=== PATIENT | female | born 1970 | race African-American/Black ===

== ENCOUNTER 2016-09-20 10:49 | Emergency (ER) | payer OTHER ==
[~2016-09-20] VITALS: Ht 157.5 cm; Wt 60.0 kg
[~2016-09-20 10:49] MED LIST: METR250 PO
[2016-09-20 11:05] VITALS: BP 132/74; PULSE 98; RESP 20; TEMP 98; O2SAT 98
[2016-09-20] MEDS ORDERED: ZOLO25TA PO (11:14)
[2016-09-20] MEDS ORDERED: RISP.25 PO (11:14)
[2016-09-20] MEDS ORDERED: SERO25TA PO (11:14)
--- NOTE | 2016-09-20 11:16 | PD ---
HPI Chief Complaint: Psychiatric Symptoms Time Seen by Provider: 11:05 Travel History International Travel<30 days: No Contact w/Intl Traveler<30days: No Traveled to known affect area: No History of Present Illness HPI Patient is a 45-year-old female who presents to emergency room after she made suicidal and homicidal threats to police officers today. Patient reports that she has history of bipolar disorder, reports that she hates her life and loss of committing suicide by overdosing on pills. Patient reports that she has not tried to overdose on pills because she has not found any good pills to overdose on. Patient reports that she has homicidal tendencies and ideations to her boyfriend because he has a "ahole." Patient reports that she does has history of bipolar disorder, reports that she's is supposed to be on 3 different medications for this, patient reports that she has not been compliant with her medications for the past 3 days as she has not been getting along with her boyfriend. Patient does admit to using drugs and last used cocaine PFSH Past Medical History Asthma: Yes Anxiety: Yes Depression: Yes Heart Rhythm Problems: No Diminished Hearing: No Hypertension: Yes Implanted Vascular Access Dvce: No Musculoskeletal: Yes Psychiatric: Yes (schizoeffective disorder, depression, anxiety, cocaine abuse) Respiratory: Yes Tetanus Vaccination: < 5 Years ?: Not : 6 Para: 4 Miscarriage: 0 : 2 Tubal Ligation: Yes Past Surgical History Section: Yes (X 4) Family History Family History: Negative Social History Alcohol Use: Yes (OCCASIONAL) Tobacco Use: Yes (1 1/2 PPD) Substance Use: Yes (Hx cocaine abuse) Allergies-Medications (Allergen,Severity, Reaction): Coded Allergies: Septra (Verified Allergy, Severe, 09/20/16) Per pt. Sulfa (Verified Allergy, Intermediate, Hives, 09/20/16) Per pt. Reported Meds & Prescriptions Reported Meds & Active Scripts Active Flagyl (Metronidazole) 250 Mg Tab 250 Mg PO BID 7 Days Review of Systems General / Constitutional: No: Fever Eyes: No: Visual changes HENT: No: Headaches Cardiovascular: No: Chest Pain or Discomfort Respiratory: No: Shortness of Breath Gastrointestinal: No: Abdominal Pain Genitourinary: No: Dysuria Musculoskeletal: No: Pain Skin: No Rash Neurologic: No: Weakness Psychiatric: Positive: Depression, Suicidal Ideations, Substance Abuse, Homicidal Ideation Endocrine: No: Polydipsia Hematologic/Lymphatic: No: Easy Bruising Physical Exam Narrative GENERAL: No acute distress, nontoxic SKIN: Warm and dry. HEAD: Atraumatic. Normocephalic. EYES: Pupils equal and round. No scleral icterus. No injection or drainage. ENT: No nasal bleeding or discharge. Mucous membranes pink and moist. NECK: Trachea midline. No JVD. CARDIOVASCULAR: Regular rate and rhythm. No murmur appreciated. RESPIRATORY: No accessory muscle use. Clear to auscultation. Breath sounds equal bilaterally. GASTROINTESTINAL: Abdomen soft, non-tender, nondistended. Hepatic and splenic margins not palpable. MUSCULOSKELETAL: No obvious deformities. No clubbing. No cyanosis. No edema. NEUROLOGICAL: Awake and alert. No obvious cranial nerve deficits. Motor grossly within normal limits. Normal speech. PSYCHIATRIC: Patient anxious, patient with suicidal and homicidal ideations Data Data Last Documented VS Vital Signs Date Time Temp Pulse Resp B/P Pulse Ox O2 Delivery O2 Flow Rate FiO2 09/20/16 11:05 98.0 98 20 132/74 98 [facility] Medical Decision Making Medical Screen Exam Complete: Yes Emergency Medical Condition: Yes Interpretation(s) Vital Signs Date Time Temp Pulse Resp B/P Pulse Ox O2 Delivery O2 Flow Rate FiO2 09/20/16 11:05 98.0 98 20 132/74 98 Differential Diagnosis Drug abuse, bipolar disorder, suicidal idealizations, homicidal idealizations Narrative Course Patient is a 45-year-old female who presents to emergency room under Jackson act by police officers. Patient with suicidal and homicidal ideations with increased depression. Patient reports that she has thoughts for how she would commit suicide but has not acted upon them. Plan to obtain screening labs, once medically cleared, will clear her for psychiatric evaluation. Rosie Lux DO Sep 20, 2016 11:16
[2016-09-20 11:56] LABS: AMPHETAMINE, URINE NEG (NEG); BARBITURATES, URINE NEG (NEG); COCAINE, URINE POS (NEG)
[2016-09-20 11:56] LABS: ALT (GPT) 16 U/L (10-53); ANION GAP 7 MEQ/L (5-15); AST (GOT) 25 U/L (15-37); BLOOD UREA NITROGEN 8 MG/DL (7-18); CHLORIDE 106 MEQ/L (98-107); GLOMERULAR FILTRATION RATE 93 ML/MIN (>89); POTASSIUM 3.1 MEQ/L (3.5-5.1); SODIUM (NA) 140 MEQ/L (136-145)
[2016-09-20 11:59] LABS: ALKALINE PHOSPHATASE 82 U/L (45-117); TOTAL BILIRUBIN ADULT 0.4 MG/DL (0.2-1.0)
[2016-09-20 12:12] LABS: BACTERIA, URINE RARE /hpf; BLOOD, URINE NEG (NEG); GLUCOSE,URINE TRACE mg/dL (NEG); HYALINE CAST, URINE 46 /lpf (RARE); KETONE, URINE 10 mg/dL (NEG); MUCUS URINE MANY /lpf (OCC); NITRITE,URINE NEG (NEG); PH, URINE 6.5 (5.0-8.5); SQUAMOUS EPITHELIAL CELL URINE 7 /hpf (0-5); URINE COLOR YELLOW (YELLW/STRAW)
[2016-09-20 12:17] LABS: COMMENT (UR) CULT NOT INDICATED; CULTURE IF INDICATED CULT NOT INDICATED
[2016-09-20 13:06] LABS: AUTOMATED NEUTROPHIL # 2.6 TH/MM3 (1.8-7.7); BASOPHIL % 0.4 % (0.0-2.0); EOSINOPHIL # 0.1 TH/MM3 (0-0.4); EOSINOPHIL % 2.8 % (0.0-4.0); HEMATOCRIT 34.9 % (35.0-46.0); HEMO FLAGS DIFF FINAL; LYMPH % 28.1 % (9.0-44.0); LYMPHOCYTE # 1.3 TH/MM3 (1.0-4.8); MEAN CELL VOLUME 84.3 FL (80.0-100.0); MEAN CORPUSCULAR HEMOGLOBIN 28.4 PG (27.0-34.0); MEAN CORPUSCULAR HGB CONC 33.7 % (32.0-36.0); MONO % 13.5 % (0.0-8.0); NEUT % 55.2 % (16.0-70.0); PLATELET COUNT 209 TH/MM3 (150-450); RED BLOOD COUNT 4.14 MIL/MM3 (4.00-5.30); RED CELL DISTRIBUTION WIDTH 13.4 % (11.6-17.2); WHITE BLOOD COUNT 4.8 TH/MM3 (4.0-11.0)
[2016-09-20] MEDS ORDERED: POTASSIUM CL 40 MEQ/30 ML LIQ UDC PO ONE (14:15)
[2016-09-20 17:55] VITALS: BP 118/60; PULSE 80; RESP 18; TEMP 97.8; O2SAT 95
[2016-09-20 22:00] VITALS: BP 100/60; PULSE 87; RESP 18; O2SAT 98
[2016-09-21 02:57] VITALS: BP 143/67; PULSE 88; RESP 18; TEMP 97.4; O2SAT 99
[2016-09-21 06:16] VITALS: BP 119/63; PULSE 85; RESP 19; O2SAT 99
--- NOTE | 2016-09-21 09:53 | PD ---
Physical Exam Time Seen by Provider: 09:48 Narrative I was asked to evaluate this patient by psychiatric nursing staff for oral lesions and complaint of vaginal discharge. The patient is here under Jackson act for suicidal ideations, was already seen and medically cleared by previous provider, for full H&P please see their documentation. Essentially the patient states that she has had some bumps on the back of her tongue for one day. Denies any difficulty swallowing, fever, chills, nausea, vomiting. States that she has had malodorous vaginal discharge for the past week. She admits to multiple new sexual partners. States that she is also having some mild suprapubic pain with burning with urination. Denies . No other complaints. GENERAL: Well-nourished and well-developed pleasant female patient in no acute distress who is nontoxic appearing. DENTAL: Patient has multiple erythematous bumps to posterior tongue, no swelling , no discharge or drainage. Oropharynx is clear. GASTROINTESTINAL: Abdomen is soft, non-tender, and nondistended. GENITOURINARY: Normal external genitalia without lesions or erythema. Vaginal vault with small amount of malodorous white discharge. Cervical os was closed. Mild cervical motion tenderness. Uterus nontender and nonenlarged. Bilateral adnexa nontender without masses. Performed in the presence of Yudy DE JESUS. Data Data Last Documented VS Vital Signs Date Time Temp Pulse Resp B/P Pulse Ox O2 Delivery O2 Flow Rate FiO2 09/21/16 08:52 85 19 09/21/16 06:16 119/63 99 Room Air 09/21/16 02:57 97.4 Orders Complete Blood Count With Diff (09/20/16 11:11) Comprehensive Metabolic Panel (09/20/16 11:11) Urinalysis - C+S If Indicated (09/20/16 11:11) Drug Screen, Random Urine (09/20/16 11:11) Alcohol (Ethanol) (09/20/16 11:11) Psych Screen (09/20/16 11:11) Potassium Cl 40 Meq/30 Ml Liq (Kcl 40 Me (09/20/16 14:15) Diet Regular Basic (09/20/16 Dinner) Diet Regular Basic (09/21/16 Breakfast) Gc And Chlamydia Pcr (09/21/16 09:29) Wet Prep Profile (09/21/16 09:29) Ed Urine Pregnancytest Poc (09/21/16 09:29) Ceftriaxone Inj (Rocephin Inj) (09/21/16 10:00) Lidocaine 1% Inj (50 Ml) (Xylocaine 1% I (09/21/16 10:00) Azithromycin (Zithromax) (09/21/16 10:00) Labs Laboratory Tests Test 09/20/16 09/20/16 09/20/16 09/21/16 11:00 11:36 12:52 10:15 Urine Color YELLOW Urine Turbidity HAZY Urine pH 6.5 Urine Specific [place] 1.028 Urine Protein 100 mg/dL Urine Glucose (UA) TRACE mg/dL Urine Ketones 10 mg/dL Urine Occult Blood NEG Urine Nitrite NEG Urine Bilirubin NEG Urine Urobilinogen 4.0 MG/DL Urine Leukocyte Esterase NEG Urine RBC 3 /hpf Urine WBC 7 /hpf Urine Squamous Epithelial 7 /hpf Cells Urine Bacteria RARE /hpf Urine Hyaline Casts 46 /lpf Urine Mucus MANY /lpf Microscopic Urinalysis Comment CULT NOT INDICATED Sodium Level 140 MEQ/L Potassium Level 3.1 MEQ/L Chloride Level 106 MEQ/L Carbon Dioxide Level 27.0 MEQ/L Anion Gap 7 MEQ/L Blood Urea Nitrogen 8 MG/DL Creatinine 0.81 MG/DL Estimat Glomerular Filtration 93 ML/MIN Rate Random Glucose 119 MG/DL Calcium Level 9.2 MG/DL Total Bilirubin 0.4 MG/DL Aspartate Amino Transf 25 U/L (AST/SGOT) Alanine Aminotransferase 16 U/L (ALT/SGPT) Alkaline Phosphatase 82 U/L Total Protein 7.9 GM/DL Albumin 4.1 GM/DL Ethyl Alcohol Level LESS THAN 3 MG/DL Urine Opiates Screen NEG Urine Barbiturates Screen NEG Urine Amphetamines Screen NEG Urine Benzodiazepines Screen NEG Urine Cocaine Screen POS Urine Cannabinoids Screen NEG White Blood Count 4.8 TH/MM3 Red Blood Count 4.14 MIL/MM3 Hemoglobin 11.8 GM/DL Hematocrit 34.9 % Mean Corpuscular Volume 84.3 FL Mean Corpuscular Hemoglobin 28.4 PG Mean Corpuscular Hemoglobin 33.7 % Concent Red Cell Distribution Width 13.4 % Platelet Count 209 TH/MM3 Mean Platelet Volume 8.4 FL Neutrophils (%) (Auto) 55.2 % Lymphocytes (%) (Auto) 28.1 % Monocytes (%) (Auto) 13.5 % Eosinophils (%) (Auto) 2.8 % Basophils (%) (Auto) 0.4 % Neutrophils # (Auto) 2.6 TH/MM3 Lymphocytes # (Auto) 1.3 TH/MM3 Monocytes # (Auto) 0.6 TH/MM3 Eosinophils # (Auto) 0.1 TH/MM3 Basophils # (Auto) 0.0 TH/MM3 CBC Comment DIFF FINAL Differential Comment Clue Cells (Wet Prep) NONE SEEN Vaginal Trichomonas (Wet Prep) NONE SEEN Vaginal Yeast (Wet Prep) NONE SEEN MDM Supervised Visit with LAURIE: No Narrative Course 45-year-old female brought to the emergency department under Jackson act. Already seen and medically cleared by physician. Complained of oral lesion and vaginal discharge to psych nursing who asked me to come evaluate the patient. She has a few bumps on her posterior tongue but no signs of infection. She has white discharge and mild cervical motion tenderness with multiple sexual partners. We'll treat the patient prophylactically with Rocephin and Zithromax for gonorrhea and chlamydia. Urinalysis is unremarkable for urinary tract infection. Wet prep is negative. ED urine is negative. Diagnosis Primary Impression: Vaginal discharge Additional Impression: Tongue lesion Cathy Pemberton Sep 21, 2016 09:53
[2016-09-21] MEDS ORDERED: AZITHROMYCIN 250 MG TAB PO ONE (10:00)
[2016-09-21] MEDS ORDERED: cefTRIAXone 250 MG VIAL IM ONE (10:00)
[2016-09-21] MEDS ORDERED: LIDOCAINE HCL 1% 50 ML VIAL IM ONE (10:00)
[2016-09-21 10:15] VITALS: BP 109/62; PULSE 90; RESP 18
[2016-09-21 12:09] LABS: CHLAMYDIA PCR NOT DETECTED (NOT DETECT); NEISSERIA PCR NOT DETECTED (NOT DETECT)
[2016-09-21 14:00] VITALS: BP 113/66; PULSE 85; RESP 18
--- NOTE | 2016-09-21 16:01 | PD ---
History of Present Illness Chief Complaint: Psychiatric Symptoms Time Seen by Provider: 13:00 Travel History International Travel<30 Days: No Contact w/Intl Traveler<30days: No Known affected area: No Legal Status Legal Status: Jackson Act Jackson Act Signed By: Ofelia Matthews History of Present Illness: History of Present Illness HPI Patient is a 45-year-old female with hx of schizoaffective disorder bipolar type , cocaine abuse who presents to emergency room under a BA after she made suicidal and homicidal threats to police officers today. As per the reports she stated several times to the police that she would harm herself and other people. She reported to Ed provider that she has thoughts of committing suicide by overdosing on pills. Patient reports that she has not tried to overdose on pills because she has not found any good pills to overdose on. She has not been compliant with her medications for the past 3 days as she has not been getting along with her boyfriend. Patient does admit to using drugs and last used cocaine and has a positive toxicology for cocaine. Patient is well known to [facility] and to this department. She was last seen and evaluated on Aug 2016 and at that time was transferred to [facility] for treatment. her last inpatient psychiatric treatment here at [facility] was [place] 2016 under the care of Dr Webster. Patient is alert and oriented. Mood is irritable at times but only for short periods of time. She has otherwise remained in bed. She at one point was yelling to get her antibiotic. She has dyskenetic movements which have been present on previous visits. Patient continues to endorse suicidal ideation and not feeling safe if she were to be discharged. She is denying hallucinations at this time. Agustínn has expressed her desire to go to [facility] sothat she can get a case liner and get back on treatment. PFSH Past Medical History Asthma: Yes Anxiety: Yes Depression: Yes Heart Rhythm Problems: No Diminished Hearing: No Hypertension: Yes Implanted Vascular Access Dvce: No Musculoskeletal: Yes Psychiatric: Yes (schizoeffective disorder, depression, anxiety, cocaine abuse) Respiratory: Yes Tetanus Vaccination: < 5 Years ?: Not : 6 Para: 4 Miscarriage: 0 : 2 Tubal Ligation: Yes Past Surgical History Section: Yes (X 4) Psychiatric History Psychiatric History Hx Psychiatric Treatment: Patient reported a history of multiple psychiatric admissions. LAST ADMISSION WAS TO [facility] ON AUG 22, 2016 History of Inpatient Treatment: Yes Guns or firearms in home: No Social History single female who is homeless. 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 Hx Alcohol Use: Yes (OCCASIONAL) Hx Tobacco Use: Yes (1 1/2 PPD) Hx Substance Use: Yes (Hx cocaine abuse) Substance Use Type: Crack, Nicotine/Cigarettes, Cocaine Hx of Substance Use Treatment: Yes Family Psychiatric History unable to obtain. Allergies-Medications (Allergen,Severity, Reaction): Coded Allergies: Septra (Verified Allergy, Severe, 09/20/16) Per pt. Sulfa (Verified Allergy, Intermediate, Hives, 09/20/16) Per pt. Reported Meds & Prescriptions Reported Meds & Active Scripts Active Flagyl (Metronidazole) 250 Mg Tab 250 Mg PO BID 7 Days Reported Risperdal (Risperidone) 0.25 Mg Tab 0.25 Mg PO DAILY Zoloft (Sertraline HCl) 25 Mg Tab 25 Mg PO DAILY Seroquel (Quetiapine Fumarate) 25 Mg Tab 25 Mg PO BID Review of Systems Constitutional: DENIES: Diaphoretic episodes, Fatigue, Fever, Weight gain, Weight loss, Chills, Dizziness, Change in appetite, Night Sweats Endocrine: DENIES: Abnorml menstrual pattern, Heat/cold intolerance, Polydipsia , Polyuria, Polyphagia Eyes: DENIES: Blurred vision, Diplopia, Eye inflammation, Eye pain, Vision loss , Photosensitivity, Double Vision Ears, nose, mouth, throat: COMPLAINS OF: Oral lesions Respiratory: DENIES: Apneas, Cough, Snoring, Wheezing, Hemoptysis, Sputum production, Shortness of breath Cardiovascular: DENIES: Chest pain, Palpitations, Syncope, Dyspnea on Exertion , PND, Lower Extremity Edema, Orthopnea, Claudication Gastrointestinal: DENIES: Abdominal pain, Black stools, Bloody stools, Constipation, Diarrhea, Nausea, Vomiting, Difficulty Swallowing, Anorexia Genitourinary: COMPLAINS OF: Vaginal discharge Musculoskeletal: DENIES: Joint pain, Muscle aches, Stiffness, Joint Swelling, Back pain, Neck pain Integumentary: DENIES: Abnormal pigmentation, Pruritus, Rash, Nail changes, Breast masses, Breast skin changes, Nipple discharge Hematologic/lymphatic: DENIES: Bruising, Lymphadenopathy Immunologic/allergic: DENIES: Eczema, Urticaria Neurologic: DENIES: Abnormal gait, Headache, Localized weakness, Paresthesias, Seizures, Speech Problems, Tremor, Poor Balance Psychiatric: COMPLAINS OF: Agitation, Suicidal Ideation Exam Alert: Yes [place]: Person (ox3) Mood: Agitated, Angry, Calm, Other (labile) Speech: Clear Eye Contact: None Memory Intact: Comment (not tested) Suicidal: Ideation (to overdose) Homicidal: Ideation (deneis at present) Insight/Judgement poor. poor MDM Medical Decision Making Medical Record Reviewed: Yes Assessment/Plan 45 lisa old female w hx of schizoaffective disorder, cocaine abuise who is under a bA. Diana is non meidcation compliant and reports sucidal ideation w intent to overdose on pills . She continues to report feeling unsafeif she were discharged. Patient has requested to be sent to [facility] for further tretament. Has been placed on their list . Orders Diet Regular Basic (09/20/16 Dinner) Diet Regular Basic (09/21/16 Breakfast) Gc And Chlamydia Pcr (09/21/16 09:29) Wet Prep Profile (09/21/16 09:29) Ed Urine Pregnancytest Poc (09/21/16 09:29) Ceftriaxone Inj (Rocephin Inj) (09/21/16 10:00) Lidocaine 1% Inj (50 Ml) (Xylocaine 1% I (09/21/16 10:00) Azithromycin (Zithromax) (09/21/16 10:00) Diet Regular Basic (09/21/16 Lunch) Diet Regular Basic (09/21/16 Dinner) Results Vital Signs Date Time Temp Pulse Resp B/P Pulse Ox O2 Delivery O2 Flow Rate FiO2 09/21/16 14:00 85 18 113/66 Room Air 09/21/16 10:15 90 18 109/62 Room Air 09/21/16 08:52 85 19 09/21/16 06:16 85 19 119/63 99 Room Air 09/21/16 02:57 97.4 88 18 143/67 99 Room Air 09/20/16 22:00 87 18 100/60 98 Room Air 09/20/16 17:55 97.8 80 18 118/60 95 Room Air Laboratory Tests Test 09/21/16 10:15 Clue Cells (Wet Prep) NONE SEEN Vaginal Trichomonas (Wet Prep) NONE SEEN Vaginal Yeast (Wet Prep) NONE SEEN Chlamydia trachomatis DNA NOT DETECTED (PCR) Neisseria gonorrhoeae DNA NOT DETECTED (PCR) Diagnosis Primary Impression: Drug-induced mood disorder Additional Impressions: Vaginal discharge Tongue lesion Cocaine abuse Problem Qualifiers Amisha March Sep 21, 2016 16:01
== END 2016-09-21 21:13 ==
LOC: NEPA 10:49 → NEPJ 09-21 21:13
DX: F14.14 Cocaine abuse with cocaine-induced mood disorder (principal); N89.8 Other specified noninflammatory disorders of vagina; F25.0 Schizoaffective disorder, bipolar type; F17.200 Nicotine dependence, unspecified, uncomplicated
CPT/HCPCS: 80053; 80307; 80320; 81001; 84703; 85025; 87210; 87491; 87591; 96372; 99284; J0696

== ENCOUNTER 2016-09-25 07:59 | Emergency (ER) | payer SELFPAY ==
[~2016-09-25] VITALS: Ht 154.9 cm; Wt 70.0 kg
[~2016-09-25 07:59] MED LIST changes: +RISP.25 PO; +SERO25TA PO; +ZOLO25TA PO
[2016-09-25 08:02] VITALS: BP 156/91; PULSE 86; RESP 18; TEMP 97.9; O2SAT 95
[2016-09-25 08:12] VITALS: BP 131/97; PULSE 86; RESP 18; TEMP 97.8; O2SAT 100
--- NOTE | 2016-09-25 08:21 | PD ---
HPI Chief Complaint: suicidal ideation Time Seen by Provider: 08:16 Travel History International Travel<30 days: No Contact w/Intl Traveler<30days: No Traveled to known affect area: No History of Present Illness HPI 45-year-old female with history of psychiatric issues, presents to the ER today because she states that she is considering harming herself. She admits to taking 7 tablets of 200 mg ibuprofen at 12 midnight. She denies any other coingestions and denies any other issues. Modifying Factors: None Associated Signs & Symptoms: Suicidal ideation, possible intentional overdose Risk Factors: Psychiatric history PFSH Past Medical History Asthma: Yes Anxiety: Yes Depression: Yes Heart Rhythm Problems: No Diminished Hearing: No Hypertension: Yes Implanted Vascular Access Dvce: No Musculoskeletal: Yes Psychiatric: Yes (schizoeffective disorder, depression, anxiety, cocaine abuse) Respiratory: Yes : 6 Para: 4 Miscarriage: 0 : 2 Tubal Ligation: Yes Past Surgical History Section: Yes (X 4) Social History Alcohol Use: Yes (OCCASIONAL) Tobacco Use: Yes (1 / PPD) Substance Use: Yes (Hx cocaine abuse) Allergies-Medications (Allergen,Severity, Reaction): Coded Allergies: Septra (Verified Allergy, Severe, 09/25/16) Per pt. Sulfa (Verified Allergy, Intermediate, Hives, 09/25/16) Per pt. Reported Meds & Prescriptions Reported Meds & Active Scripts Active Flagyl (Metronidazole) 250 Mg Tab 250 Mg PO BID 7 Days Reported Risperdal (Risperidone) 0.25 Mg Tab 0.25 Mg PO DAILY Zoloft (Sertraline HCl) 25 Mg Tab 25 Mg PO DAILY Seroquel (Quetiapine Fumarate) 25 Mg Tab 25 Mg PO BID Review of Systems Except as stated in HPI: all other systems reviewed are Neg Physical Exam Narrative GENERAL: Well-nourished, well-developed middle age -[place] female patient in no acute distress. SKIN: Warm and dry. HEAD: Normocephalic. EYES: No scleral icterus. No injection or drainage. NECK: Supple, trachea midline. CARDIOVASCULAR: Regular rate and rhythm without murmurs, gallops, or rubs. RESPIRATORY: Breath sounds equal bilaterally. No accessory muscle use. GASTROINTESTINAL: Abdomen soft, non-tender, nondistended. MUSCULOSKELETAL: No cyanosis, or edema. BACK: Nontender without obvious deformity. No CVA tenderness. Data Data Last Documented VS Vital Signs Date Time Temp Pulse Resp B/P Pulse Ox O2 Delivery O2 Flow Rate FiO2 09/25/16 08:12 97.8 86 18 131/97 100 09/25/16 08:02 Room Air Orders Complete Blood Count With Diff (09/25/16 08:16) Comprehensive Metabolic Panel (09/25/16 08:16) Drug Screen, Random Urine (09/25/16 08:16) Alcohol (Ethanol) (09/25/16 08:16) Salicylates (Aspirin) (09/25/16 08:16) Tylenol (Acetaminophen) (09/25/16 08:16) Psych Screen (09/25/16 08:16) Ed Urine Pregnancytest Poc (09/25/16 08:16) Call Poison Control (09/25/16 08:45) Labs Laboratory Tests Test 09/25/16 09/25/16 09:15 10:25 White Blood Count 6.4 TH/MM3 Red Blood Count 4.27 MIL/MM3 Hemoglobin 12.3 GM/DL Hematocrit 37.7 % Mean Corpuscular Volume 88.4 FL Mean Corpuscular Hemoglobin 28.8 PG Mean Corpuscular Hemoglobin 32.6 % Concent Red Cell Distribution Width 13.5 % Platelet Count 190 TH/MM3 Mean Platelet Volume 9.3 FL Neutrophils (%) (Auto) 70.4 % Lymphocytes (%) (Auto) 18.2 % Monocytes (%) (Auto) 9.8 % Eosinophils (%) (Auto) 1.4 % Basophils (%) (Auto) 0.2 % Neutrophils # (Auto) 4.5 TH/MM3 Lymphocytes # (Auto) 1.2 TH/MM3 Monocytes # (Auto) 0.6 TH/MM3 Eosinophils # (Auto) 0.1 TH/MM3 Basophils # (Auto) 0.0 TH/MM3 CBC Comment DIFF FINAL Differential Comment Sodium Level 134 MEQ/L Potassium Level 4.6 MEQ/L Chloride Level 104 MEQ/L Anion Gap 10 MEQ/L Blood Urea Nitrogen 12 MG/DL Creatinine 0.71 MG/DL Estimat Glomerular Filtration 109 ML/MIN Rate Random Glucose 83 MG/DL Calcium Level 8.7 MG/DL Total Bilirubin 0.4 MG/DL Aspartate Amino Transf 30 U/L (AST/SGOT) Alanine Aminotransferase 18 U/L (ALT/SGPT) Alkaline Phosphatase 75 U/L Total Protein 8.2 GM/DL Albumin 3.8 GM/DL Urine Opiates Screen NEG Acetaminophen Level LESS THAN 2.0 MCG/ML Urine Barbiturates Screen NEG Urine Amphetamines Screen NEG Urine Benzodiazepines Screen NEG Urine Cocaine Screen POS Urine Cannabinoids Screen NEG Ethyl Alcohol Level LESS THAN 3 MG/DL Salicylates Level 2.1 MG/DL MDM Medical Decision Making Medical Screen Exam Complete: Yes Emergency Medical Condition: Yes Medical Record Reviewed: Yes Interpretation(s) Laboratory Tests Test 09/25/16 09/25/16 09:15 10:25 Neutrophils (%) (Auto) 70.4 % (16.0-70.0) Monocytes (%) (Auto) 9.8 % (0.0-8.0) Sodium Level 134 MEQ/L (136-145) Acetaminophen Level LESS THAN 2.0 MCG/ML (10.0-30.0) Urine Cocaine Screen POS (NEG) Salicylates Level 2.1 MG/DL (2.8-20.0) Differential Diagnosis Suicidal ideation, intentional overdoserule out coingestions versus intoxication Narrative Course Lab work did not show significant elevation and salicylate levels or any significant metabolic issues. She does have cocaine in her urine toxicology screen. Vital signs are stable in the ER. Case was discussed with poison control who recommended observation in the ER until 11 AM. Patient is continuing to do well. She was Jackson acted for suicidal ideation. At this point, my plan would be to medically clear her for psychiatric evaluation. Diagnosis Primary Impression: SUICIDAL IDEATIONS Disposition: 65 DISC TO PSYCH CARE FACILITY Condition: Stable Luis Barton MD Sep 25, 2016 08:21
[2016-09-25 09:44] LABS: AUTOMATED NEUTROPHIL # 4.5 TH/MM3 (1.8-7.7); BASOPHIL % 0.2 % (0.0-2.0); EOSINOPHIL # 0.1 TH/MM3 (0-0.4); EOSINOPHIL % 1.4 % (0.0-4.0); HEMATOCRIT 37.7 % (35.0-46.0); HEMO FLAGS DIFF FINAL; LYMPH % 18.2 % (9.0-44.0); LYMPHOCYTE # 1.2 TH/MM3 (1.0-4.8); MEAN CELL VOLUME 88.4 FL (80.0-100.0); MEAN CORPUSCULAR HEMOGLOBIN 28.8 PG (27.0-34.0); MEAN CORPUSCULAR HGB CONC 32.6 % (32.0-36.0); MONO % 9.8 % (0.0-8.0); NEUT % 70.4 % (16.0-70.0); PLATELET COUNT 190 TH/MM3 (150-450); RED BLOOD COUNT 4.27 MIL/MM3 (4.00-5.30); RED CELL DISTRIBUTION WIDTH 13.5 % (11.6-17.2); WHITE BLOOD COUNT 6.4 TH/MM3 (4.0-11.0)
[2016-09-25 09:47] LABS: AMPHETAMINE, URINE NEG (NEG); BARBITURATES, URINE NEG (NEG); COCAINE, URINE POS (NEG)
[2016-09-25 10:06] LABS: ALKALINE PHOSPHATASE 75 U/L (45-117); ALT (GPT) 18 U/L (10-53); AST (GOT) 30 U/L (15-37); CHLORIDE 104 MEQ/L (98-107); GLOMERULAR FILTRATION RATE 109 ML/MIN (>89); POTASSIUM 4.6 MEQ/L (3.5-5.1); SODIUM (NA) 134 MEQ/L (136-145); TOTAL BILIRUBIN ADULT 0.4 MG/DL (0.2-1.0)
[2016-09-25 10:14] LABS: ACETAMINOPHEN LESS THAN 2.0 MCG/ML (10.0-30.0); BLOOD UREA NITROGEN 12 MG/DL (7-18)
[2016-09-25 11:04] LABS: ANION GAP 1 MEQ/L (5-15)
[2016-09-25 11:46] VITALS: BP 133/82; PULSE 84; RESP 16; O2SAT 98
[2016-09-25 13:17] VITALS: BP 122/76; PULSE 85; RESP 18; TEMP 97.5; O2SAT 95
[2016-09-25] MEDS ORDERED: SERO400T PO (14:12)
[2016-09-25] MEDS ORDERED: RISP3 PO (14:12)
[2016-09-25] MEDS ORDERED: ZOLO100T PO (14:12)
[2016-09-25 18:21] VITALS: BP 100/60; PULSE 84; RESP 16; O2SAT 97
== END 2016-09-25 22:19 ==
LOC: NEPC 07:59 → NEPJ 22:19
DX: F20.9 Schizophrenia, unspecified (principal); F14.10 Cocaine abuse, uncomplicated; T39.311A Poisoning by propionic acid derivatives, accidental (unintentional), initial encounter; F17.210 Nicotine dependence, cigarettes, uncomplicated; J45.909 Unspecified asthma, uncomplicated; I10 Essential (primary) hypertension; Z91.14 Patient's other noncompliance with medication regimen
CPT/HCPCS: 80053; 80307; 80320; 80329; 84703; 85025; 99284; G0480

== ENCOUNTER 2017-01-14 07:10 | Emergency (ER) | payer SELFPAY ==
[~2017-01-14] VITALS: Ht 154.9 cm; Wt 63.0 kg
[~2017-01-14 07:10] MED LIST changes: -METR250 PO; -RISP.25 PO; +RISP3 PO; -SERO25TA PO; +SERO400T PO; +ZOLO100T PO; -ZOLO25TA PO
[2017-01-14 07:11] VITALS: BP 138/91; PULSE 101; RESP 17; TEMP 98.1; O2SAT 99
[2017-01-14] MEDS ORDERED: metroNIDAZOLE 500 MG TAB PO ONE (07:30)
[2017-01-14] MEDS ORDERED: METR-1 PO (07:33)
--- NOTE | 2017-01-14 07:34 | PD ---
HPI Chief Complaint: Psychiatric Symptoms Time Seen by Provider: 07:22 Travel History International Travel<30 days: No Contact w/Intl Traveler<30days: No Traveled to known affect area: No History of Present Illness HPI 46 yo F complains of suicidal ideation. She reports a hx of self harm. She denies HI. She reports noncompliance with Seroquel, risperidone and Zoloft as she does not have the medication. She denies drug and alcohol abuse. She also states she has bacterial vaginosis and reports she was recently diagnosed with BV however did not fully complete the antibiotic course. Location neuropsychiatric. Severity moderate. Timing constant. PFSH Past Medical History Asthma: Yes Anxiety: Yes Depression: Yes Heart Rhythm Problems: No Diminished Hearing: No Hypertension: Yes Implanted Vascular Access Dvce: No Musculoskeletal: Yes Psychiatric: Yes (schizoeffective disorder, depression, anxiety, cocaine abuse) Respiratory: Yes Tetanus Vaccination: > 5 Years Influenza Vaccination: No ?: Not : 6 Para: 4 Miscarriage: 0 : 2 Tubal Ligation: Yes Past Surgical History Section: Yes (X 4) Social History Alcohol Use: Yes (OCCASIONAL) Tobacco Use: Yes (1 /2 PPD) Substance Use: Yes (COCAINE) Allergies-Medications (Allergen,Severity, Reaction): Coded Allergies: Septra (Verified Allergy, Severe, 01/14/17) Per pt. Sulfa (Verified Allergy, Intermediate, Hives, 01/14/17) Per pt. Reported Meds & Prescriptions Reported Meds & Active Scripts Active Flagyl (Metronidazole) 500 Mg Tab 500 Mg PO BID 7 Days Reported Zoloft (Sertraline HCl) 100 Mg Tab 100 Mg PO DAILY Risperdal (Risperidone) 3 Mg Tab 3 Mg PO HS Seroquel (Quetiapine Fumarate) 400 Mg Tab 400 Mg PO DAILY Review of Systems Except as stated in HPI: all other systems reviewed are Neg General / Constitutional: No: Fever Physical Exam Narrative GENERAL: 46 yo F, WNWD, NAD, cooperative : Deferred per preference of patient. SKIN: Warm and dry. HEAD: Atraumatic. Normocephalic. EYES: Pupils equal and round. No scleral icterus. No injection or drainage. ENT: No nasal bleeding or discharge. Mucous membranes pink and moist. NECK: Trachea midline. No JVD. CARDIOVASCULAR: Regular rate and rhythm. RESPIRATORY: No accessory muscle use. Clear to auscultation. Breath sounds equal bilaterally. GASTROINTESTINAL: Abdomen soft, non-tender, nondistended. Hepatic and splenic margins not palpable. MUSCULOSKELETAL: Extremities without clubbing, cyanosis, or edema. No obvious deformities. NEUROLOGICAL: Awake and alert. No obvious cranial nerve deficits. Motor grossly within normal limits. Five out of 5 muscle strength in the arms and legs. Normal speech. PSYCHIATRIC: Reports SI. No HI. No hallucination. Data Data Last Documented VS Vital Signs Date Time Temp Pulse Resp B/P Pulse Ox O2 Delivery O2 Flow Rate FiO2 01/14/17 07:11 98.1 101 17 138/91 99 VS reviewed Orders Complete Blood Count With Diff (01/14/17 07:23) Comprehensive Metabolic Panel (01/14/17 07:23) Psych Screen (01/14/17 07:23) Drug Screen, Random Urine (01/14/17 07:23) Alcohol (Ethanol) (01/14/17 07:23) Salicylates (Aspirin) (01/14/17 07:23) Tylenol (Acetaminophen) (01/14/17 07:23) Metronidazole (Flagyl) (01/14/17 07:30) Potassium Chloride (Kcl) (01/14/17 08:30) Labs Laboratory Tests Test 01/14/17 07:30 White Blood Count 6.3 TH/MM3 Red Blood Count 4.38 MIL/MM3 Hemoglobin 13.5 GM/DL Hematocrit 38.3 % Mean Corpuscular Volume 87.6 FL Mean Corpuscular Hemoglobin 30.9 PG Mean Corpuscular Hemoglobin 35.3 % Concent Red Cell Distribution Width 12.8 % Platelet Count 240 TH/MM3 Mean Platelet Volume 8.5 FL Neutrophils (%) (Auto) 61.6 % Lymphocytes (%) (Auto) 25.4 % Monocytes (%) (Auto) 10.8 % Eosinophils (%) (Auto) 1.9 % Basophils (%) (Auto) 0.3 % Neutrophils # (Auto) 3.9 TH/MM3 Lymphocytes # (Auto) 1.6 TH/MM3 Monocytes # (Auto) 0.7 TH/MM3 Eosinophils # (Auto) 0.1 TH/MM3 Basophils # (Auto) 0.0 TH/MM3 CBC Comment DIFF FINAL Differential Comment Sodium Level 141 MEQ/L Potassium Level 3.3 MEQ/L Chloride Level 106 MEQ/L Carbon Dioxide Level 26.1 MEQ/L Anion Gap 9 MEQ/L Blood Urea Nitrogen 15 MG/DL Creatinine 0.79 MG/DL Estimat Glomerular Filtration 96 ML/MIN Rate Random Glucose 81 MG/DL Calcium Level 9.4 MG/DL Total Bilirubin 0.3 MG/DL Aspartate Amino Transf 27 U/L (AST/SGOT) Alanine Aminotransferase 17 U/L (ALT/SGPT) Alkaline Phosphatase 93 U/L Total Protein 8.5 GM/DL Albumin 4.1 GM/DL Salicylates Level 2.5 MG/DL Acetaminophen Level LESS THAN 2.0 MCG/ML Ethyl Alcohol Level LESS THAN 3 MG/DL MDM Medical Decision Making Medical Screen Exam Complete: Yes Emergency Medical Condition: Yes Medical Record Reviewed: Yes Differential Diagnosis Altered mental status/psychosis due to infection/environmental exposure/ metabolic abnormality, polypharmacy, alcohol abuse/intoxication, illicit or prescribed drug abuse, malingering/secondary gain, non-organic psychiatric disease Narrative Course One dose of Flagyl given. Flagyl rx given to patient. The history of present illness, ROS, physical exam, review of records and medical workup performed for today's visit have reasonably safely excluded organic etiologies for the patient's presenting complaint. We will continue to monitor the patient carefully in the ER until time of evaluation by the psychiatry service. We are available for any additional medical assistance if needed during the patient's ER course. Disposition per discretion of psychiatry is appreciated. CBC & BMP Diagram 01/14/17 07:30 LFTs normal Salicylates 2.5 EtOH < 3 APAP < 2.0 Diagnosis Primary Impression: Suicidal ideation Additional Impression: Bacterial vaginosis Med/Other Pt SpecificInfo: Prescription(s) given Scripts Metronidazole (Flagyl)500 Mg [id number] Mg PO BID 7 Days Ref 0 Prov:Surya Warner MD 01/14/17 Surya Warner MD January 14, 2017 07:34
[2017-01-14 07:54] LABS: AUTOMATED NEUTROPHIL # 3.9 TH/MM3 (1.8-7.7); BASOPHIL % 0.3 % (0.0-2.0); EOSINOPHIL # 0.1 TH/MM3 (0-0.4); EOSINOPHIL % 1.9 % (0.0-4.0); HEMATOCRIT 38.3 % (35.0-46.0); HEMO FLAGS DIFF FINAL; LYMPH % 25.4 % (9.0-44.0); LYMPHOCYTE # 1.6 TH/MM3 (1.0-4.8); MEAN CELL VOLUME 87.6 FL (80.0-100.0); MEAN CORPUSCULAR HEMOGLOBIN 30.9 PG (27.0-34.0); MEAN CORPUSCULAR HGB CONC 35.3 % (32.0-36.0); MONO % 10.8 % (0.0-8.0); NEUT % 61.6 % (16.0-70.0); PLATELET COUNT 240 TH/MM3 (150-450); RED BLOOD COUNT 4.38 MIL/MM3 (4.00-5.30); RED CELL DISTRIBUTION WIDTH 12.8 % (11.6-17.2); WHITE BLOOD COUNT 6.3 TH/MM3 (4.0-11.0)
[2017-01-14 08:12] LABS: ALT (GPT) 17 U/L (10-53); ANION GAP 9 MEQ/L (5-15); AST (GOT) 27 U/L (15-37); BICARBONATE 26.1 MEQ/L (21.0-32.0); BLOOD UREA NITROGEN 15 MG/DL (7-18); CHLORIDE 106 MEQ/L (98-107); GLOMERULAR FILTRATION RATE 96 ML/MIN (>89); POTASSIUM 3.3 MEQ/L (3.5-5.1); SODIUM (NA) 141 MEQ/L (136-145)
[2017-01-14 08:15] LABS: ALKALINE PHOSPHATASE 93 U/L (45-117); TOTAL BILIRUBIN ADULT 0.3 MG/DL (0.2-1.0)
[2017-01-14 08:18] LABS: ACETAMINOPHEN LESS THAN 2.0 MCG/ML (10.0-30.0)
[2017-01-14] MEDS ORDERED: POTASSIUM CHLORIDE 20 MEQ CONTROLLED RELEASE TAB PO ONE (08:30)
[2017-01-14 14:01] VITALS: BP 102/63; PULSE 92; RESP 16; TEMP 98.3; O2SAT 99
[2017-01-14 14:16] LABS: AMPHETAMINE, URINE NEG (NEG); BARBITURATES, URINE NEG (NEG); COCAINE, URINE POS (NEG)
[2017-01-14 15:05] VITALS: BP 120/65; PULSE 108; RESP 20; TEMP 98.3; O2SAT 99
[2017-01-14 18:51] VITALS: BP 118/63; PULSE 93; RESP 20; TEMP 96.9; O2SAT 99
[2017-01-14 22:00] VITALS: BP 92/56; PULSE 84; RESP 18; O2SAT 99
[2017-01-15 02:22] VITALS: BP 131/75; PULSE 92; RESP 18; O2SAT 96
[2017-01-15 06:24] VITALS: BP 105/69; PULSE 89; RESP 18; O2SAT 95
[2017-01-15] MEDS ORDERED: metroNIDAZOLE 500 MG TAB PO ONE (09:00)
[2017-01-15 09:17] VITALS: BP 105/69; PULSE 89; RESP 18; O2SAT 95
--- NOTE | 2017-01-15 12:08 | PD.CONS ---
Provisional Diagnosis Admission Date 01/15/2017 [place] I. 1. Cocaine Dependence 2. Malingering for long-term [place] II. Deferred [place] V. GAF is 55 presently, decreased secondary to substance use. History of Present Illness Service Psychiatry Consult Requested By ED Reason for Consult Voluntary psychiatric evaluation Primary Care Physician No Primary Care Physician HPI Ms. Basilio is a 46-year-old female with a history of cocaine use disorder who presents voluntarily for psychiatric evaluation. Reviewing the electronic medical record, the patient was most recently admitted here under my care in April 2016, and I do note my concern at that time for symptom exaggeration with the goal of obtaining long-term as she was homeless. She has also been seen in the ED since by the crop grain or livestock farmer. Patient seen and examined. Chart reviewed. Case discussed with nursing staff who reports there has been no evidence of any suicidality or homicidality while the patient has been under observation in the J-pod. Patient's urine toxicology is once again positive for cocaine. Her psychiatric presentation is extremely manipulative. Her primary goal seems to be gaining admission to the inpatient psychiatric unit. She is an extremely vague historian otherwise saying only that "I wish I was not here" and that she sometimes hears voices "telling me on not worthy." No salvador otf suicidal or homicidal ideation, intent or plan. No command auditory hallucinations. No other hallucinatory material. No evident delusions. The patient cannot generate any depressive or hypomanic/manic symptoms except the above. The remainder of the psychiatric ROS is negative. Past psychiatric history: Patient has a history here of substance use disorder with associated mood disorder. She reports that she follows at [facility]. She says that she is recently returned to the area having been staying in [place]. She was hospitalized at the [facility] there in December. She endorses a history of suicide attempt by cutting. Family history: Patient denies any family history of serious mental illness or suicide. Chemical dependency history: Patient reports ongoing use of cocaine. Social history: Patient is presently homeless. She arrived back in the area from [place] on Friday. She is single. She has 2 sons and 2 daughters. She has her GED. She is not working and has no income. She denies any legal history. Denies any access to guns or firearms. Review of Systems Except as stated in HPI: all other systems reviewed are Neg (reports BV) Past Family Social History Coded Allergies: Septra (Verified Allergy, Severe, 01/14/17) Per pt. Sulfa (Verified Allergy, Intermediate, Hives, 01/14/17) Per pt. Past Medical History Reports BV. See EMR. Active Scripts Metronidazole (Flagyl)500 Mg [id number] Mg PO BID 7 Days Ref 0 Prov:Surya Warner MD 01/14/17 Reported Medications Sertraline (Zoloft)100 Mg [id number] Mg PO DAILY #30 TAB Ref 0 09/25/16 Risperidone (Risperdal)3 Mg Tab3 Mg PO HS #30 TAB Ref 0 09/25/16 Quetiapine (Seroquel)400 Mg [id number] Mg PO DAILY #30 TAB Ref 0 09/25/16 Family History See above Social History See above Patient's Strengths (min. 2) Able to access clinical care. Verbally fluent. Physical Exam Physical examination completed by ED provider. On my examination today, the patient appears to be well-nourished and well-developed and in no acute physical distress. No abnormal motor movements noted. Laboratories and vital signs reviewed: Vital Signs Vital Signs Date Time Temp Pulse Resp B/P Pulse Ox O2 Delivery O2 Flow Rate FiO2 01/15/17 09:17 89 18 105/69 95 Room Air 01/14/17 18:51 96.9 Lab Results Item Value Date Time White Blood Count 6.3 TH/MM3 01/14/17 0730 Hemoglobin 13.5 GM/DL 01/14/17 0730 Platelet Count 240 TH/MM3 01/14/17 0730 Sodium Level 141 MEQ/L 01/14/17 0730 Potassium Level 3.3 MEQ/L L 01/14/17 0730 Chloride Level 106 MEQ/L 01/14/17 0730 Carbon Dioxide Level 26.1 MEQ/L 01/14/17 0730 Blood Urea Nitrogen 15 MG/DL 01/14/17 0730 Creatinine 0.79 MG/DL 01/14/17 0730 Estimat Glomerular Filtration Rate 96 ML/MIN 01/14/17 0730 Random Glucose 81 MG/DL 01/14/17 0730 Aspartate Amino Transf (AST/SGOT) 27 U/L 01/14/17 0730 Alanine Aminotransferase (ALT/SGPT) 17 U/L 01/14/17 0730 Alkaline Phosphatase 93 U/L 01/14/17 0730 Urine Cocaine Screen POS H 01/14/17 1400 Ethyl Alcohol Level LESS THAN 3 MG/DL 01/14/17 0730 Mental Status Examination Patient is in hospital gown. She is fairly well groomed and maintaining basic hygiene. She appears to be attending to her basic needs. She is awake and alert and oriented to person and hospital at least. No evidence of delirium. No abnormal motor movements noted. Speech is within normal limits for rate, tone and volume. When which and fund of knowledge average. Mood is somewhat dysphoric and affect is restricted. Thought process linear. No loosening of associations. No evident delusions. Reports vague auditory hallucinations but does not appear at all internally stimulated. No other hallucinatory material. No suicidal or homicidal ideation although the patient does articulate passive thoughts of in a very manipulative fashion. Insight and judgment are fair. Assessment & Plan Problem List: (1) Cocaine dependence ICD Code: F14.20 (2) Malingering ICD Code: Z76.5 Assessment & Plan This is a 46-year-old female with psychiatric history as detailed above who presents voluntarily for psychiatric evaluation. Patient is recently returned to the area and was apparently hospitalized in [place] where she had been staying before this. Her overall presentation is extremely manipulative and the primary goal seems to be obtaining admission to the inpatient psychiatric unit as she is currently homeless. It would be actively counter therapeutic to accede to her manipulations and admit this patient to the inpatient unit in my judgement, although I am cognizant of the fact that she may act out and self-injure because her primary goal of gaining admission was frustrated. Her primary psychiatric issue seems to be her ongoing substance use, and so it would likewise be unproductive to admit her to the general inpatient psychiatric unit. She would be best served by following longitudinally for psychiatric and chemical dependency care on an outpatient basis, and we will refer her back to [facility] for this. Patient does not meet Jackson Act criteria after weighing the relevant factors. Psychiatrically clear for discharge from the ED. Request HC Surrog/Guard Advoc?: No Problem Qualifiers (1) Cocaine dependence: Qualified Code: F14.20 - Cocaine dependence without complication Antony Gil MD January 15, 2017 12:08
== END 2017-01-15 12:27 ==
LOC: NEPE 07:10 → NEPJ 01-15 12:27
DX: N76.0 Acute vaginitis (principal); R45.851 Suicidal ideations; I10 Essential (primary) hypertension; F32.9 Major depressive disorder, single episode, unspecified; F41.9 Anxiety disorder, unspecified; F14.10 Cocaine abuse, uncomplicated; F17.210 Nicotine dependence, cigarettes, uncomplicated; J45.909 Unspecified asthma, uncomplicated; Z91.14 Patient's other noncompliance with medication regimen
CPT/HCPCS: 80053; 80307; 85025; 99285

== ENCOUNTER 2017-01-23 05:34 | Observation (INO) | payer SELFPAY ==
[2017-01-23] VITALS (11 sets, daily range): BP systolic 84–137; BP diastolic 55–90; PULSE 54–118; RESP 15–21; TEMP 98.1–99.2; O2SAT 96–100
[~2017-01-23 05:34] MED LIST changes: +METR-1 PO
--- NOTE | 2017-01-23 06:40 | PD ---
HPI Chief Complaint: Psychiatric Symptoms Time Seen by Provider: 06:38 Travel History International Travel<30 days: No Contact w/Intl Traveler<30days: No Traveled to known affect area: No History of Present Illness HPI 46 year-old female history of bipolar schizoaffective disorder presents to emergency for voluntarily for psychiatric evaluation. Patient states she has been taking her medication but she is becoming more depressed and paranoid. She likes psychiatric evaluation. Patient does report doing cocaine yesterday which does occasionally. This may be exacerbating her symptoms she feels. Patient denies any acute medical needs at this time. PFSH Past Medical History Asthma: Yes Anxiety: Yes Depression: Yes Heart Rhythm Problems: No Diminished Hearing: No Hypertension: Yes Implanted Vascular Access Dvce: No Musculoskeletal: Yes Psychiatric: Yes (schizoeffective disorder, depression, anxiety, cocaine abuse) Respiratory: Yes ?: Not : 6 Para: 4 Miscarriage: 0 : 2 Tubal Ligation: Yes Past Surgical History Section: Yes (X 4) Social History Alcohol Use: Yes (OCCASIONAL) Tobacco Use: Yes ( 1/2 PPD) Substance Use: Yes (COCAINE) Allergies-Medications (Allergen,Severity, Reaction): Coded Allergies: Septra (Verified Allergy, Severe, 01/23/17) Per pt. Sulfa (Verified Allergy, Intermediate, Hives, 01/23/17) Per pt. Reported Meds & Prescriptions Reported Meds & Active Scripts Active Flagyl (Metronidazole) 500 Mg Tab 500 Mg PO BID 7 Days Reported Zoloft (Sertraline HCl) 100 Mg Tab 100 Mg PO DAILY Risperdal (Risperidone) 3 Mg Tab 3 Mg PO HS Seroquel (Quetiapine Fumarate) 400 Mg Tab 400 Mg PO DAILY Review of Systems Except as stated in HPI: all other systems reviewed are Neg Physical Exam Narrative GENERAL: Well-nourished female patient, in no acute distress SKIN: Focused skin assessment warm/dry. HEAD: Atraumatic. Normocephalic. EYES: Pupils equal and round. No scleral icterus. No injection or drainage. ENT: No nasal bleeding or discharge. Mucous membranes pink and moist. NECK: Trachea midline. No JVD. CARDIOVASCULAR: Regular rate and rhythm. No murmur appreciated. RESPIRATORY: No accessory muscle use. Clear to auscultation. Breath sounds equal bilaterally. GASTROINTESTINAL: Abdomen soft, non-tender, nondistended. Hepatic and splenic margins not palpable. MUSCULOSKELETAL: No obvious deformities. No clubbing. No cyanosis. No edema. NEUROLOGICAL: Awake and alert. No obvious cranial nerve deficits. Motor grossly within normal limits. Normal speech. Data Data Last Documented VS Vital Signs Date Time Temp Pulse Resp B/P Pulse Ox O2 Delivery O2 Flow Rate FiO2 01/23/17 05:37 98.2 118 15 137/90 97 Room Air Orders Complete Blood Count With Diff (01/23/17 05:48) Basic Metabolic Panel (Bmp) (01/23/17 05:48) Psych Screen (01/23/17 05:48) Drug Screen, Random Urine (01/23/17 05:48) Alcohol (Ethanol) (01/23/17 05:48) MDM Medical Decision Making Medical Screen Exam Complete: Yes Emergency Medical Condition: Yes Medical Record Reviewed: Yes Differential Diagnosis Mood disorder versus personality disorder versus adjustment reaction disorder versus substance abuse Narrative Course 46 year-old female presents to emergency department voluntarily for psychiatric evaluation. Patient appears without distress. Lab work is sent for medical clearance. Pending no acute lab abnormality, patient will be medically cleared to undergo psychiatric screening for further evaluation and disposition. Mental health screening discussed with the patient. Psychiatric screen ordered. Diagnosis Primary Impression: Drug-induced mood disorder Additional Impressions: Schizoaffective disorder Qualified Code: F25.0 - Schizoaffective disorder, bipolar type Cocaine abuse Condition: Chanell Jimenez January 23, 2017 06:40
[2017-01-23 06:57] LABS: ANION GAP 7 MEQ/L (5-15); BICARBONATE 22.4 MEQ/L (21.0-32.0); BLOOD UREA NITROGEN 11 MG/DL (7-18); CHLORIDE 106 MEQ/L (98-107); GLOMERULAR FILTRATION RATE 106 ML/MIN (>89); SODIUM (NA) 135 MEQ/L (136-145)
[2017-01-23 07:00] LABS: POTASSIUM 4.6 MEQ/L (3.5-5.1)
--- NOTE | 2017-01-23 08:12 | PD ---
Physical Exam Date Seen by Provider: January 23, 2017 Time Seen by Provider: 08:09 Narrative I was asked to medically clear this patient once labs are back by Nolvia West. 810: I was notified by Elyssa DE JESUS that patient just took 8 seroquel in the room in a suicide attempt. Data Data Last Documented VS Vital Signs Date Time Temp Pulse Resp B/P Pulse Ox O2 Delivery O2 Flow Rate FiO2 01/23/17 07:45 99.2 95 18 121/83 99 Room Air Orders Complete Blood Count With Diff (01/23/17 05:48) Basic Metabolic Panel (Bmp) (01/23/17 05:48) Psych Screen (01/23/17 05:48) Drug Screen, Random Urine (01/23/17 05:48) Alcohol (Ethanol) (01/23/17 05:48) Diet Regular Basic (01/23/17 Breakfast) Electrocardiogram (01/23/17 ) Comprehensive Metabolic Panel (01/23/17 08:17) Tylenol (Acetaminophen) (01/23/17 08:17) ^ Seizure Precautions (01/23/17 08:17) Salicylates (Aspirin) (01/23/17 08:18) Labs Laboratory Tests Test 01/23/17 06:15 Sodium Level 135 MEQ/L Potassium Level 4.6 MEQ/L Chloride Level 106 MEQ/L Carbon Dioxide Level 22.4 MEQ/L Anion Gap 7 MEQ/L Blood Urea Nitrogen 11 MG/DL Creatinine 0.72 MG/DL Estimat Glomerular Filtration 106 ML/MIN Rate Random Glucose 96 MG/DL Calcium Level 9.1 MG/DL Ethyl Alcohol Level LESS THAN 3 MG/DL [facility] Medical Record Reviewed: Yes Supervised Visit with LAURIE: No Differential Diagnosis suicidal attempt Narrative Course Patient seen and examined. She reports taking 8 tablets of seroquel 400 mg at once. She does a pill bottle with her. It is empty. 0812: contacted poison control: Patient will have to be closely monitored for 12 hours due to ingestion of 8 tabs of 400 mg seroquel ER she will need to be on tele and an ekg will need to be done immediately, which I have ordered and then in another hour. she was placed on seizure precautions per recommendations I have discussed the case with Dr. Zavaleta. She is being transferred to a medical pod for closer surveillance. Diagnosis Primary Impression: Drug-induced mood disorder Additional Impressions: Cocaine abuse Schizoaffective disorder Qualified Code: F25.0 - Schizoaffective disorder, bipolar type Condition: Stable Chayo Joshi January 23, 2017 08:12
--- NOTE | 2017-01-23 09:07 | PD ---
Physical Exam Date Seen by Provider: January 23, 2017 Time Seen by Provider: 09:01 Narrative PATIENT HAD ALREADY BEING MEDICALLY CLEARED PREVIOUSLY FOR PSYCH....HOWEVER, DURING THE HOLD BEFORE HER BELONGINGS WERE REMOVED ABOUT 30 MIN SENIOR STOCK PLAN ADMINISTRATOR AT ECHO POD , PATIENT INGESTED 12 SEROQUEL TABS IN HER POSSESSION, PER POISON CONTROL REQUIRES 12 HOURS OBSERVATION... Data Data Last Documented VS Vital Signs Date Time Temp Pulse Resp B/P Pulse Ox O2 Delivery O2 Flow Rate FiO2 01/23/17 07:45 99.2 95 18 121/83 99 Room Air Orders Complete Blood Count With Diff (01/23/17 05:48) Basic Metabolic Panel (Bmp) (01/23/17 05:48) Psych Screen (01/23/17 05:48) Drug Screen, Random Urine (01/23/17 05:48) Alcohol (Ethanol) (01/23/17 05:48) Diet Regular Basic (01/23/17 Breakfast) Electrocardiogram (01/23/17 ) Comprehensive Metabolic Panel (01/23/17 08:17) Tylenol (Acetaminophen) (01/23/17 08:17) ^ Seizure Precautions (01/23/17 08:17) Salicylates (Aspirin) (01/23/17 08:18) Labs Laboratory Tests Test 01/23/17 06:15 Sodium Level 135 MEQ/L Potassium Level 4.6 MEQ/L Chloride Level 106 MEQ/L Carbon Dioxide Level 22.4 MEQ/L Anion Gap 7 MEQ/L Blood Urea Nitrogen 11 MG/DL Creatinine 0.72 MG/DL Estimat Glomerular Filtration 106 ML/MIN Rate Random Glucose 96 MG/DL Calcium Level 9.1 MG/DL Ethyl Alcohol Level LESS THAN 3 MG/DL [facility] Medical Record Reviewed: Yes Supervised Visit with LAURIE: Yes Physician Communication Physician Communication CASE DW DR SHAW Diagnosis Primary Impression: Drug-induced mood disorder Additional Impressions: Cocaine abuse Schizoaffective disorder Qualified Code: F25.0 - Schizoaffective disorder, bipolar type Ingestion of substance Qualified Code: T65.92XA - Ingestion of substance, intentional self-harm, initial encounter Condition: Stable Je Orellana MD January 23, 2017 09:07
[2017-01-23] MEDS ORDERED: SODIUM CHLOR 0.9% 1000 ML INJ 2,000 ML IV ONE (09:30)
--- NOTE | 2017-01-23 09:32 | HHI.HP ---
[facility] Service Family Medicine Primary Care Physician No Primary Care Physician Admission Diagnosis SEROQUEL OVERDOSE/JACKSON ACT Diagnoses: International Travel<30 Days: No Contact w/Intl Traveler<30days: No Known Affected Area: No History of Present Illness Patient is a 46-year-old female with a history of bipolar schizoaffective disorder, depression, anxiety, and cocaine abuse that presents to the [place] ED with a chief complaint of suicidal ideation, requesting voluntary admission to the inpatient psychiatry unit. While she was being medically cleared for psychiatric screening, she ingested 8 tablets of 400 mg Seroquel which was observed by one of the ED nurses. Poison control was contacted and recommended admission for minimum 12 hour observation. Patient reports multiple histories of suicidal attempts but could not tell me if she had a plan today. She stated that she started feeling suicidal about 30 minutes before she presented to the ED. She was last evaluated in the ED on 14 January. Psychiatry was consulted at that time and did not recommend inpatient admission, sensing that her behavior was manipulative. And states that she received psychiatric treatment as an outpatient at [facility]. She was last there on Friday this week. (Michelle Enriquez MD R1) Review of Systems Constitutional: DENIES: Fever, Chills Eyes: DENIES: Blurred vision, Eye pain Respiratory: DENIES: Shortness of breath Cardiovascular: DENIES: Chest pain Gastrointestinal: COMPLAINS OF: Nausea, DENIES: Abdominal pain, Diarrhea, Vomiting Genitourinary: DENIES: Dysuria Musculoskeletal: DENIES: Joint pain, Muscle aches Integumentary: DENIES: Pruritus, Rash Neurologic: DENIES: Headache Psychiatric: COMPLAINS OF: Anxiety, Depression, Suicidal Ideation, Homicidal Ideation (Michelle Enriquez MD R1) Past Family Social History Past Medical History Bipolar schizoaffective disorder Anxiety Depression Cocaine abuse Past Surgical History section in 2004 Reported Medications Reported Meds & Active Scripts Active Flagyl (Metronidazole) 500 Mg Tab 500 Mg PO BID 7 Days Reported Zoloft (Sertraline HCl) 100 Mg Tab 100 Mg PO DAILY Risperdal (Risperidone) 3 Mg Tab 3 Mg PO HS Seroquel (Quetiapine Fumarate) 400 Mg Tab 400 Mg PO DAILY (Michelle Enriquez MD R1) Allergies: Coded Allergies: Septra (Verified Allergy, Severe, 01/23/17) Per pt. Sulfa (Verified Allergy, Intermediate, Hives, 01/23/17) Per pt. 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 SKIN: No rashes, ecchymoses or lesions. Cool and dry. HEAD: Atraumatic. Normocephalic. No temporal or scalp tenderness. EYES: Pupils equal round and reactive. Extraocular motions intact. No scleral icterus. No injection or drainage. ENT: Nose without bleeding, purulent drainage or septal hematoma. Throat without erythema, tonsillar hypertrophy or exudate. Uvula midline. Airway patent. NECK: Trachea midline. No JVD or lymphadenopathy. Supple, nontender, no meningeal signs. CARDIOVASCULAR: Regular rate and rhythm without murmurs, gallops, or rubs. RESPIRATORY: Clear to auscultation. Breath sounds equal bilaterally. No wheezes , rales, or rhonchi. GASTROINTESTINAL: Abdomen soft, slightly tender to palpation in the left lower quadrant, distended per patient. No hepato-splenomegaly, or palpable masses. No guarding. MUSCULOSKELETAL: Extremities without clubbing, cyanosis, or edema. No joint tenderness, effusion, or edema noted. No calf tenderness. NEUROLOGICAL: Awake and alert. Cranial nerves II through XII intact. Motor and sensory grossly within normal limits. Five out of 5 muscle strength in all muscle groups. Normal speech. Laboratory Laboratory Tests Test 01/23/17 06:15 Sodium Level 135 Potassium Level 4.6 Chloride Level 106 Carbon Dioxide Level 22.4 Anion Gap 7 Blood Urea Nitrogen 11 Creatinine 0.72 Estimat Glomerular Filtration 106 Rate Random Glucose 96 Calcium Level 9.1 Ethyl Alcohol Level LESS THAN 3 (Michelle Enriquez MD R1) Result Diagram: 5/18/17 0615 Course Patient was initially tachycardic at 118 when she presented in the ED. BP was within normal limits but after Seroquel ingestion, her BP dropped to 84/55. She received 2 L normal saline boluses. Stat EKG showed sinus tachycardia. (Michelle Enriquez MD R1) Assessment and Plan Assessment and Plan 46 year old female with past medical history of bipolar schizoaffective disorder , depression, anxiety, and cocaine abuse presents with a chief complaint of suicidal ideation, requesting voluntary admission to the inpatient psychiatry unit. She is being admitted on observation due to ingestion of eight 400 mg Seroquel tablets in the ED. Patient has a history of multiple suicide attempts and multiple attempts to get admitted to the psych unit. There is concern for primary gain due to her being homeless and lacking an income. Psychiatry has been consulted to determine if she meets criteria for psychiatric admission. Code Status Full code Discussed Condition With Seen and examined with Dr. Victor, PGY 2 (Michelle Enriquez MD R1) Attending Attestation THIS CASE WAS DISCUSSED WITH THE RESIDENT PHYSICIAN. I HAVE REVIEWED THE RECORD AND AGREE WITH THE ABOVE NOTE AND PLAN OF CARE WAS DISCUSSED. I HAVE AUTHORIZED THE ORDER FOR PLACEMENT IN OUT-PATIENT OBSERVATION STATUS. (Du Fitzpatrick MD) Problem List: (1) Ingestion of substance Status: Acute Plan: -Patient ingested 8-12 Seroquel tablets in the ED in a suicidal attempt which is mostly seen as a gesture/manipulative strategy to get admitted to the inpatient psych unit -Poison control was contacted and recommended 12 hours observation -Stat EKG showed sinus tachycardia -Will repeat EKG 6 hours 2 to check for prolonged QT -Telemetry with continuous vital signs monitoring -Neuro checks every 4 hours -Activity bed rest -Jackson act in place -Psychiatry consulted -Zofran 4 mg IV every 6 hours when necessary nausea/vomiting (2) Schizoaffective disorder Status: Acute Plan: -Holding Seroquel -Continue home risperidone at bedtime and Zoloft 100 mg by mouth daily (3) Cocaine abuse Status: Acute Plan: -Patient has a long history of cocaine abuse that may also be contributing to her mood disorder -UDS pending (4) Bacterial vaginosis Status: Acute Plan: -Patient reports history of bacterial vaginosis on treatment with metronidazole 100 mg PO twice a day -She has one dose remaining to be completed today (5) FEN/DVT PPX/GI PPX/Standard Orders Status: Acute Plan: Fluids: NS @ 100 mls/hr IV Electrolytes: Will monitor and replace as needed Nutrition: NPO DVT Prophylaxis: Bilateral SCDs, heparin subcutaneous Q8h, -Monitor I's and O's -Neurochecks every 4 hours -Seizure precautions -Fall precautions -crosscutter rolled glass with telemetry -Continuous vital signs -Activity bed rest Disposition: Pending psychiatry evaluation. Case management consulted to assist with disposition (Michelle Enriquez MD R1) Problem Qualifiers (1) Ingestion of substance: Qualified Code: T65.92XA - Ingestion of substance, intentional self-harm, initial encounter (2) Schizoaffective disorder: Qualified Code: F25.0 - Schizoaffective disorder, bipolar type Michelle Enriquez MD R1 January 23, 2017 09:32 Du Fitzpatrick MD January 24, 2017 13:12
[2017-01-23] MEDS: DOCUSATE SODIUM 100 MG CAP PO SCH ×2 (09:45→21:01)
[2017-01-23] MEDS ORDERED: SODIUM CHLORIDE 0.9% FLUSH 10 ML FLUSH IV FLUSH PRN (09:45)
[2017-01-23] MEDS ORDERED: ONDANSETRON HCL 4 MG/2 ML VIAL IVP PRN (09:45)
[2017-01-23] MEDS ORDERED: NALOXONE HCL 0.4 MG/ML AMP IV PRN (09:45)
[2017-01-23 09:46] LABS: AUTOMATED NEUTROPHIL # 3.1 TH/MM3 (1.8-7.7); BASOPHIL % 0.2 % (0.0-2.0); EOSINOPHIL % 0.6 % (0.0-4.0); HEMO FLAGS DIFF FINAL; LYMPH % 17.7 % (9.0-44.0); LYMPHOCYTE # 0.8 TH/MM3 (1.0-4.8); MEAN CELL VOLUME 88.5 FL (80.0-100.0); MEAN CORPUSCULAR HEMOGLOBIN 29.4 PG (27.0-34.0); MEAN CORPUSCULAR HGB CONC 33.2 % (32.0-36.0); MONO % 14.4 % (0.0-8.0); NEUT % 67.1 % (16.0-70.0); PLATELET COUNT 190 TH/MM3 (150-450); RED BLOOD COUNT 4.18 MIL/MM3 (4.00-5.30); RED CELL DISTRIBUTION WIDTH 12.7 % (11.6-17.2); WHITE BLOOD COUNT 4.6 TH/MM3 (4.0-11.0)
[2017-01-23 10:08] LABS: ANION GAP 10 MEQ/L (5-15); AST (GOT) 25 U/L (15-37); BICARBONATE 24.5 MEQ/L (21.0-32.0); BLOOD UREA NITROGEN 12 MG/DL (7-18); CHLORIDE 102 MEQ/L (98-107); GLOMERULAR FILTRATION RATE 80 ML/MIN (>89); POTASSIUM 3.8 MEQ/L (3.5-5.1); SODIUM (NA) 136 MEQ/L (136-145)
[2017-01-23 10:11] LABS: ACETAMINOPHEN LESS THAN 2.0 MCG/ML (10.0-30.0); ALKALINE PHOSPHATASE 73 U/L (45-117); ALT (GPT) 14 U/L (10-53); TOTAL BILIRUBIN ADULT 0.4 MG/DL (0.2-1.0)
[2017-01-23] MEDS: HEPARIN SODIUM - SQ 10,000 UNITS/ML VIAL SQ SCH ×2 (11:52→19:22)
[2017-01-23] MEDS: SODIUM CHLOR 0.9% 1000 ML INJ 1,000 ML IV SCH ×3 (11:53→23:32)
--- NOTE | 2017-01-23 14:53 | PD.CONS ---
Provisional Diagnosis Admission Date January 23, 2017 at 09:17 [place] I. Schizophrenia, Bipolar disorder, cocaine and alcohol use disorder, malingering with secondary gain of using the hospital as usp [place] II. Unspecified personality disorder [place] III. No significant medical history [place] IV. Homeless, sustained substance use disorder [place] V. 55 History of Present Illness Service Psychiatry Consult Requested By Primary Care Physician No Primary Care Physician HPI The patient is a 46-year-old woman, single, homeless, unemployed, with psychiatric history of schizoaffective disorder, multiple psychiatric hospitalizations, multiple ER visits, well-known by this service, last ER visit was January 14, she was seen and discharged by Dr. Gil, documentation was reviewed, cocaine and alcohol use disorder, history of noncompliance with medication and psychiatric recommendations, she has active outpatient psychiatric care in [facility], she is on Risperdal 3 mg, Seroquel 400 mg, Zoloft 100 mg, no significant medical history, who presents to the [place] ED with a chief complaint of suicidal ideation, requesting voluntary admission to the inpatient psychiatry unit. While she was being medically cleared for psychiatric screening, she ingested 8 tablets of 400 mg Seroquel which was observed by one of the ED nurses. Poison control was contacted and recommended admission for minimum 12 hour observation.Patient reports multiple histories of suicidal attempts but could not tell me if she had a plan today. She stated that she started feeling suicidal about 30 minutes before she presented to the ED. psychiatric evaluation today patient was found sleeping, stating that she had a nervous breakdown yesterday and she decided to come to the ER for psychiatric admission. She says that she has been using crack cocaine every day taking her medications on and off. She does not specify what a nervous breakdown means. She says that she has been hearing voices telling her to watch herself. She says that she has been hearing these voices for many years now. Voices are not commanding her to commit suicide or hurt other people. Patient says that she was feeling suicidal minutes ago, but now that she doesn't feel suicidal anymore. She says that her suicidality comes and goes. Patient drinks alcohol occasionally, last time she drank alcohol was last week.. Review of Systems Constitutional: DENIES: Diaphoretic episodes, Fatigue, Fever, Weight gain, Weight loss, Chills, Dizziness, Change in appetite, Night Sweats Endocrine: DENIES: Abnorml menstrual pattern, Heat/cold intolerance, Polydipsia , Polyuria, Polyphagia Eyes: DENIES: Blurred vision, Diplopia, Eye inflammation, Eye pain, Vision loss , Photosensitivity, Double Vision Ears, nose, mouth, throat: DENIES: Tinnitus, Hearing loss, Vertigo, Nasal discharge, Oral lesions, Throat pain, Hoarseness, Ear Pain, Running Nose, Epistaxis, Sinus Pain, Toothache, Odynophagia Respiratory: DENIES: Apneas, Cough, Snoring, Wheezing, Hemoptysis, Sputum production, Shortness of breath Cardiovascular: DENIES: Chest pain, Palpitations, Syncope, Dyspnea on Exertion , PND, Lower Extremity Edema, Orthopnea, Claudication Gastrointestinal: DENIES: Abdominal pain, Black stools, Bloody stools, Constipation, Diarrhea, Nausea, Vomiting, Difficulty Swallowing, Anorexia Genitourinary: DENIES: Abnormal vaginal bleeding, Dysmenorrhea, Dyspareunia, Sexual dysfunction, Urinary frequency, Urinary incontinence, Urgency, Hematuria , Dysuria, Nocturia, Vaginal discharge Musculoskeletal: DENIES: Joint pain, Muscle aches, Stiffness, Joint Swelling, Back pain, Neck pain Hematologic/lymphatic: DENIES: Bruising, Lymphadenopathy Immunologic/allergic: DENIES: Eczema, Urticaria Neurologic: DENIES: Abnormal gait, Headache, Localized weakness, Paresthesias, Seizures, Speech Problems, Tremor, Poor Balance Psychiatric: COMPLAINS OF: Depression Past Family Social History Coded Allergies: Septra (Verified Allergy, Severe, 01/23/17) Per pt. Sulfa (Verified Allergy, Intermediate, Hives, 01/23/17) Per pt. Active Scripts Metronidazole (Flagyl)500 Mg [id number] Mg PO BID 7 Days Ref 0 Prov:Surya Warner MD 01/14/17 Reported Medications Sertraline (Zoloft)100 Mg [id number] Mg PO DAILY #30 TAB Ref 0 09/25/16 Risperidone (Risperdal)3 Mg Tab3 Mg PO HS #30 TAB Ref 0 09/25/16 Quetiapine (Seroquel)400 Mg [id number] Mg PO DAILY #30 TAB Ref 0 09/25/16 Current Medications Medications (Trade) Dose Ordered Sig/Blaine Route Start Time Stop Time Status Last Admin (NS 1000 ml Inj) 1,000 ml @ 100 mls/hr Q10H IV 01/23/17 09:31 01/23/17 11:53 (NS Flush) 2 ml UNSCH PRN IV FLUSH 01/23/17 09:45 (NS Flush) 2 ml BID IV FLUSH 01/23/17 21:00 (Zofran Inj) 4 mg Q6H PRN IVP 01/23/17 09:45 (Colace) 100 mg Q12H PO 01/23/17 09:45 (Heparin Inj) 5,000 units Q8H SQ 01/23/17 10:00 01/23/17 11:52 (Narcan Inj) 0.4 mg UNSCH PRN IV 01/23/17 09:45 (Flagyl) 500 mg BID PO 01/23/17 21:00 (risperDAL) 3 mg HS PO 01/23/17 21:00 (Zoloft) 100 mg DAILY PO 01/24/17 09:00 Family History Her mother is bipolar Social History Patient was born and raised in [place], she is homeless, single, unemployed, her highest level of education is a GED Patient's Strengths (min. 2) Verbal communication Physical Exam Physical exam, no ideas, no withdrawal, no tremors, no stiffness, no psychomotor retardation or agitation present Vital Signs Vital Signs Date Time Temp Pulse Resp B/P Pulse Ox O2 Delivery O2 Flow Rate FiO2 01/23/17 14:08 94 01/23/17 11:58 18 102/64 100 Room Air 01/23/17 07:45 99.2 Mental Status Examination Appearance woman, fair hygiene, [facility], his stated age, irritable, cooperative Speech: Unremarkable Orientation: x3 Memory: Unremarkable Thought Process: Logical Thought Content: Unremarkable Language Represent, monotonous Fund of Knowledge Low for level of education Hallucination Type: None Attention and Concentration: Good Suicidal Ideation: No Previous Suicide Attempts: Yes Homicidal Ideation: No Previous Homicide Attempts: No Judgment: Poor Affect: Irritable Mood: Euthymic Motor Activity: Normal gait Assessment & Plan Problem List: (1) Drug-induced mood disorder Assessment & Plan: At the moment of this psychiatric evaluation patient endorses vague symptomatology of depression, she expressed suicidal ideation to the ER team hours ago, now she denies. Patient was seen and psychiatrically cleared January [address] Chaiffetz. She has active outpatient psychiatric care in [facility], she claims partial compliance with medication. Patient said that she overdosed with Seroquel 400 mg, but later on clarifies "it was not really in an overdose". Patient seems to be inconsistent, no reliable, in my opinion manipulative in order to stay in the hospital and be admitted in psychiatry. She has an strong documented history of secondary gain. In my opinion her main psychiatric problem is her sustained substance abuse and she will benefit of a comprehensive long-term rehabilitation program and not of an inpatient acute psychiatric admission that would not be beneficial in any way. Psychoeducation, supportive motivation provided. Patient should continue her psychiatric care as an outpatient in [facility]. Not immediate psychiatric intervention is needed at this moment. ICD Code: F19.94 Assessment & Plan Estimated LOS: days Jama Hamilton MD January 23, 2017 14:53
[2017-01-23] MEDS: SODIUM CHLORIDE 0.9% FLUSH 10 ML FLUSH IV FLUSH SCH (21:00)
[2017-01-23] MEDS ORDERED: risperiDONE 3 MG TAB PO SCH (21:00)
[2017-01-23] MEDS ORDERED: metroNIDAZOLE 500 MG TAB PO SCH (21:00)
[2017-01-24 00:23] VITALS: BP 107/67; PULSE 70; RESP 20; TEMP 98.3; O2SAT 96
[2017-01-24] MEDS: HEPARIN SODIUM - SQ 10,000 UNITS/ML VIAL SQ SCH ×3 (02:00→18:00)
[2017-01-24 03:49] VITALS: BP 100/62; PULSE 66; RESP 20; TEMP 97.5; O2SAT 96
[2017-01-24 08:33] VITALS: BP 102/70; PULSE 74; RESP 18; TEMP 98.2; O2SAT 96
--- NOTE | 2017-01-24 08:45 | HHI.FPPN ---
Subjective Remarks FM Attending Note: Patient seen and examined. S: Chart and all resident physician notes reviewed. In summary this is a 46 year old female who was admitted with an admission diagnosis of Seroquel Overdose. This patient has a past history of bipolar disorder/schizoaffective disorder. She presented to the emergency room reporting suicidal ideation. She was requesting voluntary admission to the inpatient psychiatric service. While being evaluated in the emergency room the patient ingested 8 400 mg Seroquel tablets that she had in her possession. She was admitted for cardiac monitoring and observation on the recommendation of poison control. Since she was admitted she was seen by psychiatry who felt that once medically stable she could be discharged to follow-up as an outpatient. The Jackson act that had been instituted at the time of admission was lifted by the psychiatrist. This morning the patient notes she is feeling better. She denies any current suicidal thoughts. She reports that she is planning to go to [facility] which is actually her home. She will establish psychiatric care in that area. She does have refills of medications prescribed by Keshav Sesay to be used in the interval period. Objective Vitals Vital Signs Date Time Temp Pulse Resp B/P Pulse Ox O2 Delivery O2 Flow Rate FiO2 01/24/17 08:33 98.2 74 18 102/70 96 01/24/17 03:49 97.5 66 20 100/62 96 01/24/17 00:23 98.3 70 20 107/67 96 01/23/17 21:37 21 01/23/17 20:01 96 01/23/17 19:36 98.3 89 21 97/57 98 01/23/17 16:09 98.2 54 18 97/58 98 01/23/17 15:51 87 01/23/17 14:39 98.1 97 16 101/65 97 01/23/17 14:08 94 01/23/17 11:58 100 18 102/64 100 Room Air 01/23/17 10:33 109 16 109/61 100 01/23/17 09:27 98 16 84/55 96 Room Air I/O 01/23/17 01/23/17 01/23/17 01/24/17 01/24/17 01/24/17 07:00 15:00 23:00 07:00 15:00 23:00 Intake Total 0 ml Balance 0 ml Intake Oral 0 ml Result Diagram: 01/23/1792301/23/17923 Objective Remarks O. CONSTITUTIONAL/GEN: normally nourished, in NAD. EYES: conjunctiva normal, PERRLA, EOMI. LUNGS: clear A-P, respiratory effort is normal. CARDIOVASCULAR: RR without murmur or gallop. No significant edema. GI/ABD: soft without masses, without organomegaly. NEURO: No focal deficits. SKIN: color normal, no rashes noted. HEME/LYMPH: no bruising, petechia or significant adenopathy MUSC: back is normal in appearance. Extremities are normal in appearance. PSYCH/MENTAL STATUS: Alert and oriented x 3. Affect normal without suicidal ideation. Does report auditory hallucinations in the past. A/P Assessment and Plan 46 year old female with past medical history of bipolar schizoaffective disorder , depression, anxiety, and cocaine abuse presents with a chief complaint of suicidal ideation, requesting voluntary admission to the inpatient psychiatry unit. She is being admitted on observation due to ingestion of eight 400 mg Seroquel tablets in the ED. Patient has a history of multiple suicide attempts and multiple attempts to get admitted to the psych unit. There is concern for primary gain due to her being homeless and lacking an income. Psychiatry has been consulted to determine if she meets criteria for psychiatric admission. Problem List: (1) Ingestion of substance Status: Acute Plan: -Patient ingested 8-12 Seroquel tablets in the ED in a suicidal attempt which is mostly seen as a gesture/manipulative strategy to get admitted to the inpatient psych unit -Poison control was contacted and recommended 12 hours observation -Stat EKG showed sinus tachycardia -Will repeat EKG 6 hours 2 to check for prolonged QT -Telemetry with continuous vital signs monitoring -Neuro checks every 4 hours -Activity bed rest -Jackson act in place -Psychiatry consulted -Zofran 4 mg IV every 6 hours when necessary nausea/vomiting. 01/24/17 No medical problems have developed from the intentional ingestion of cervical tablets. At this point the patient is medically stable. As noted above she has been released from the Jackson act and psychiatry has recommended discharge her continuation of outpatient therapy. We will make these arrangements. (2) Schizoaffective disorder Status: Acute Plan: -Holding Seroquel -Continue home risperidone at bedtime and Zoloft 100 mg by mouth daily. 01/24/18 Patient is to resume prehospital medication regimen to be continued until she follows up with her new psychiatrist in the [place] area where she is planning to relocate. (3) Cocaine abuse Status: Acute Plan: -Patient has a long history of cocaine abuse that may also be contributing to her mood disorder -UDS pending (4) Bacterial vaginosis Status: Acute Plan: -Patient reports history of bacterial vaginosis on treatment with metronidazole 100 mg PO twice a day -She has one dose remaining to be completed today (5) FEN/DVT PPX/GI PPX/Standard Orders Status: Acute Plan: Fluids: NS @ 100 mls/hr IV Electrolytes: Will monitor and replace as needed Nutrition: NPO DVT Prophylaxis: Bilateral SCDs, heparin subcutaneous Q8h, -Monitor I's and O's -Neurochecks every 4 hours -Seizure precautions -Fall precautions -monitor and storage bin tender with telemetry -Continuous vital signs -Activity bed rest Disposition: Pending psychiatry evaluation. Case management consulted to assist with disposition Problem Qualifiers (1) Ingestion of substance: Qualified Code: T65.92XA - Ingestion of substance, intentional self-harm, initial encounter (2) Schizoaffective disorder: Qualified Code: F25.0 - Schizoaffective disorder, bipolar type Du Fitzpatrick MD January 24, 2017 08:45
[2017-01-24] MEDS ORDERED: SERTRALINE HCL 100 MG TAB PO SCH (09:00)
[2017-01-24] MEDS: SODIUM CHLORIDE 0.9% FLUSH 10 ML FLUSH IV FLUSH SCH (09:00)
[2017-01-24] MEDS: DOCUSATE SODIUM 100 MG CAP PO SCH (10:13)
[2017-01-24 10:14] LABS: AUTOMATED NEUTROPHIL # 2.1 TH/MM3 (1.8-7.7); BASOPHIL % 0.4 % (0.0-2.0); EOSINOPHIL # 0.2 TH/MM3 (0-0.4); EOSINOPHIL % 4.6 % (0.0-4.0); HEMATOCRIT 34.8 % (35.0-46.0); HEMO FLAGS DIFF FINAL; LYMPH % 29.8 % (9.0-44.0); LYMPHOCYTE # 1.2 TH/MM3 (1.0-4.8); MEAN CELL VOLUME 88.9 FL (80.0-100.0); MEAN CORPUSCULAR HGB CONC 33.7 % (32.0-36.0); MONO % 13.2 % (0.0-8.0); PLATELET COUNT 180 TH/MM3 (150-450); RED BLOOD COUNT 3.92 MIL/MM3 (4.00-5.30); RED CELL DISTRIBUTION WIDTH 12.9 % (11.6-17.2)
[2017-01-24 10:44] LABS: BICARBONATE 22.7 MEQ/L (21.0-32.0); MAGNESIUM 2.1 MG/DL (1.5-2.5)
[2017-01-24 12:29] VITALS: PULSE 91
[2017-01-24] MEDS ORDERED: DOCU1CAP39 PO (12:32)
--- NOTE | 2017-01-24 12:33 | HHI.DCPOC ---
Discharge Care Plan Diagnosis: (1) Suicidal ideation (2) Cocaine dependence (3) Schizoaffective disorder (4) Drug-induced mood disorder Goals to Promote Your Health * To prevent worsening of your condition and complications * To maintain your health at the optimal level Directions to Meet Your Goals Take your medications as prescribed Follow your dietary instruction Follow activity as directed Keep your appointments as scheduled Take your immunizations and boosters as scheduled If your symptoms worsen call your PCP, if no PCP go to Urgent Care Center or Emergency Room Smoking is Dangerous to Your Health. Avoid second hand smoke Call the 24-hour hour crisis hotline for domestic abuse at Michelle Enriquez MD R1 January 24, 2017 12:33
[2017-01-24 20:03] VITALS: BP 121/60; PULSE 77; RESP 18; TEMP 98; O2SAT 98
--- NOTE | 2017-01-24 21:21 | EKG ---
Date Performed: 01/23/2017 Time Performed: 21:31:20 PTAGE: 46 years EKG: Sinus rhythm SEPTAL MYOCARDIAL INFARCTION ABNORMAL ECG PREVIOUS TRACING : 01/23/2017 15.46 Compared to prior tracing no significant change DOCTOR: Bill Bunch Interpretating Date/Time 01/24/2017 21:19:26
--- NOTE | 2017-01-24 21:46 | EKG ---
Date Performed: 01/23/2017 Time Performed: 15:46:32 PTAGE: 46 years EKG: Sinus rhythm POSSIBLE LEFT ATRIAL ENLARGEMENT SEPTAL MYOCARDIAL INFARCTION ABNORMAL ECG PREVIOUS TRACING : 01/23/2017 08.53 Compared to prior tracing no significant change DOCTOR: Bill Bunch Interpretating Date/Time 01/24/2017 21:45:04
--- NOTE | 2017-01-24 22:02 | EKG ---
Date Performed: 01/23/2017 Time Performed: 08:53:37 PTAGE: 46 years EKG: SINUS TACHYCARDIA POSSIBLE RIGHT ATRIAL ENLARGEMENT POSSIBLE LEFT ATRIAL ENLARGEMENT ABNORM AL RHYTHM ECG PREVIOUS TRACING : 04/23/2016 15.34 Compared to the previous tracing sinus tachycardia is new DOCTOR: Bill Bunch Interpretating Date/Time 01/24/2017 22:01:26
== END 2017-01-24 22:38 | disposition home or self-care (01) ==
LOC: NEPD 05:34 → NEDA 09:16 → INTOOBSV 09:17 → OBSVTOIN 09:17 → UNDOADMOB 09:17 → NEPHCDU 13:05 → NEDA 13:05 → UNDODISOB 01-24 22:38
PROVIDERS: ADMIT Family Medicine; ATTEND Family Medicine
DX: T43.592A Poisoning by other antipsychotics and neuroleptics, intentional self-harm, initial encounter (principal); T14.91 Suicide attempt; F25.0 Schizoaffective disorder, bipolar type; R00.0 Tachycardia, unspecified; F41.9 Anxiety disorder, unspecified; F32.9 Major depressive disorder, single episode, unspecified; F14.10 Cocaine abuse, uncomplicated; F17.210 Nicotine dependence, cigarettes, uncomplicated; J45.909 Unspecified asthma, uncomplicated; I10 Essential (primary) hypertension; R94.31 Abnormal electrocardiogram [ECG] [EKG]; Z59.0 Homelessness
CPT/HCPCS: 80048; 80053; 80307; 83735; 85025; 93005; 99285; G0378; J1644; J7030

== ENCOUNTER 2017-06-28 09:55 | Emergency (ER) | payer OTHER ==
[~2017-06-28] VITALS: Ht 157.5 cm; Wt 80.0 kg
[~2017-06-28 09:55] MED LIST changes: +DOCU1CAP39 PO; -METR-1 PO
[2017-06-28 09:57] VITALS: BP 132/82; PULSE 113; RESP 16; TEMP 98.5; O2SAT 95
--- NOTE | 2017-06-28 10:17 | PD ---
HPI Chief Complaint: Psychiatric Symptoms Time Seen by Provider: 10:04 Travel History International Travel<30 days: No Contact w/Intl Traveler<30days: No Traveled to known affect area: No History of Present Illness HPI Patient is a 46-year-old female with history of schizophrenia, bipolar disorder , depression, drug abuse who is brought to the emergency room by law enforcement under a Jackson act. Patient reports that she is depressed, has thoughts of wanting to kill herself. Patient reports that she feels as if her life is not worth living. She has thoughts of overdosing or cutting her wrists for committing suicide. Patient currently contrast for safety. Patient reports that she does use cocaine as her drug of choice, last use was one day ago. PFSH Past Medical History Asthma: Yes (childhood asthma) Blood Disorders: No Anxiety: Yes Depression: Yes Heart Rhythm Problems: No Cancer: No Cardiovascular Problems: No Diminished Hearing: No Endocrine: No Genitourinary: No Hypertension: Yes Immune Disorder: No Implanted Vascular Access Dvce: No Musculoskeletal: No Neurologic: No Psychiatric: Yes (schizoprenia) Reproductive: No Respiratory: Yes ?: Not LMP: 05/29/17 : 6 Para: 4 Miscarriage: 0 : 2 Tubal Ligation: Yes Past Surgical History Section: Yes (X 4) Social History Alcohol Use: Yes (OCCASIONAL) Tobacco Use: Yes ( 1/2 PPD) Substance Use: No (cocaine in the past) Allergies-Medications (Allergen,Severity, Reaction): Coded Allergies: sulfamethoxazole (Unverified Allergy, Severe, 04/22/17) Per pt. trimethoprim (Unverified Allergy, Severe, 04/22/17) Per pt. Sulfa (Sulfonamide Antibiotics) (Unverified Allergy, Intermediate, Hives, 04/22/17) Per pt. Reported Meds & Prescriptions Reported Meds & Active Scripts Active Dok (Docusate Sodium) 100 Mg Cap 100 Mg PO Q12H Reported Zoloft (Sertraline HCl) 100 Mg Tab 100 Mg PO DAILY Risperdal (Risperidone) 3 Mg Tab 3 Mg PO HS Seroquel (Quetiapine Fumarate) 400 Mg Tab 400 Mg PO DAILY Review of Systems General / Constitutional: No: Fever Eyes: No: Visual changes HENT: No: Headaches Cardiovascular: No: Chest Pain or Discomfort Respiratory: No: Shortness of Breath Gastrointestinal: No: Abdominal Pain Genitourinary: No: Dysuria Musculoskeletal: No: Pain Skin: No Rash Neurologic: No: Weakness Psychiatric: Positive: Depression, Suicidal Ideations, No: Homicidal Ideation Endocrine: No: Polydipsia Hematologic/Lymphatic: No: Easy Bruising Physical Exam Narrative GENERAL: NAD SKIN: Focused skin assessment warm/dry. HEAD: Atraumatic. Normocephalic. EYES: No injection or drainage. ENT: No nasal bleeding or discharge. Mucous membranes pink and moist. NECK: Trachea midline. No JVD. CARDIOVASCULAR: Regular rate and rhythm. No murmur appreciated. RESPIRATORY: No accessory muscle use. Clear to auscultation. Breath sounds equal bilaterally. GASTROINTESTINAL: Abdomen soft, non-tender, nondistended. Hepatic and splenic margins not palpable. MUSCULOSKELETAL: No obvious deformities. No clubbing. No cyanosis. No edema. NEUROLOGICAL: Awake and alert. No obvious cranial nerve deficits. Motor grossly within normal limits. Normal speech. PSYCHIATRIC: Depressed mood and affect; Positive SI Data Data Last Documented VS Vital Signs Date Time Temp Pulse Resp B/P (MAP) Pulse Ox O2 Delivery O2 Flow Rate FiO2 06/28/17 09:57 98.5 113 16 132/82 (99) 95 Room Air Orders Orders Complete Blood Count With Diff (06/28/17 10:04) Comprehensive Metabolic Panel (06/28/17 10:04) Psych Screen (06/28/17 10:04) Drug Screen, Random Urine (06/28/17 10:04) Alcohol (Ethanol) (06/28/17 10:04) Salicylates (Aspirin) (06/28/17 10:04) Tylenol (Acetaminophen) (06/28/17 10:04) MDM Medical Decision Making Medical Screen Exam Complete: Yes Emergency Medical Condition: Yes Medical Record Reviewed: Yes Interpretation(s) Vital Signs Date Time Temp Pulse Resp B/P (MAP) Pulse Ox O2 Delivery O2 Flow Rate FiO2 06/28/17 09:57 98.5 113 16 132/82 (99) 95 Room Air Differential Diagnosis Drug abuse, suicidal idealation, depression Narrative Course Patient is a 46-year-old female who presents emergency room under Jackson act. Psychiatric see labs ordered. Once medically cleared, will have patient sees psych screener Rosie Lux DO Jun 28, 2017 10:17
[2017-06-28 10:58] LABS: AUTOMATED NEUTROPHIL # 4.9 TH/MM3 (1.8-7.7); BASOPHIL % 0.6 % (0.0-2.0); EOSINOPHIL % 0.7 % (0.0-4.0); HEMATOCRIT 38.3 % (35.0-46.0); HEMOGLOBIN 12.8 GM/DL (11.6-15.3); LYMPH % 17.8 % (9.0-44.0); LYMPHOCYTE # 1.2 TH/MM3 (1.0-4.8); MEAN CELL VOLUME 89.9 FL (80.0-100.0); MEAN CORPUSCULAR HEMOGLOBIN 30.1 PG (27.0-34.0); MEAN CORPUSCULAR HGB CONC 33.5 % (32.0-36.0); MONO % 10.7 % (0.0-8.0); MONOCYTE # 0.7 TH/MM3 (0-0.9); NEUT % 70.2 % (16.0-70.0); PLATELET COUNT 206 TH/MM3 (150-450); RED BLOOD COUNT 4.26 MIL/MM3 (4.00-5.30); RED CELL DISTRIBUTION WIDTH 12.7 % (11.6-17.2)
[2017-06-28 11:10] LABS: ALBUMIN 4.2 GM/DL (3.4-5.0); AST (GOT) 19 U/L (15-37); BICARBONATE 24.5 MEQ/L (21.0-32.0); BLOOD UREA NITROGEN 14 MG/DL (7-18); CALCIUM 9.3 MG/DL (8.5-10.1); CHLORIDE 108 MEQ/L (98-107); CREATININE 0.84 MG/DL (0.50-1.00); GLOMERULAR FILTRATION RATE 89 ML/MIN (>89); GLUCOSE,RANDOM 98 MG/DL (74-106); SODIUM (NA) 140 MEQ/L (136-145)
[2017-06-28 11:11] LABS: ALT (GPT) 18 U/L (10-53)
[2017-06-28 11:13] LABS: ALKALINE PHOSPHATASE 70 U/L (45-117); TOTAL BILIRUBIN ADULT 0.4 MG/DL (0.2-1.0)
[2017-06-28 11:36] LABS: ACETAMINOPHEN LESS THAN 2.0 MCG/ML (10.0-30.0)
[2017-06-28 14:23] VITALS: BP 135/77; PULSE 89; RESP 20
[2017-06-28 18:33] VITALS: BP 135/77; PULSE 89; RESP 20; O2SAT 95
--- NOTE | 2017-06-28 18:36 | PD ---
Physical Exam Date Seen by Provider: Jun 28, 2017 Time Seen by Provider: 18:34 Data Data Last Documented VS Vital Signs Date Time Temp Pulse Resp B/P (MAP) Pulse Ox O2 Delivery O2 Flow Rate FiO2 06/28/17 18:34 06/28/17 18:33 89 20 95 Room Air 06/28/17 09:57 98.5 Orders Orders Complete Blood Count With Diff (06/28/17 10:04) Comprehensive Metabolic Panel (06/28/17 10:04) Psych Screen (06/28/17 10:04) Drug Screen, Random Urine (06/28/17 10:04) Alcohol (Ethanol) (06/28/17 10:04) Salicylates (Aspirin) (06/28/17 10:04) Tylenol (Acetaminophen) (06/28/17 10:04) Diet Regular Basic (06/28/17 Lunch) Diet Regular Basic (06/28/17 Dinner) Ed Discharge Order (06/28/17 18:44) Labs Laboratory Tests Test 06/28/17 10:20 White Blood Count 7.0 TH/MM3 Red Blood Count 4.26 MIL/MM3 Hemoglobin 12.8 GM/DL Hematocrit 38.3 % Mean Corpuscular Volume 89.9 FL Mean Corpuscular Hemoglobin 30.1 PG Mean Corpuscular Hemoglobin Concent 33.5 % Red Cell Distribution Width 12.7 % Platelet Count 206 TH/MM3 Mean Platelet Volume 9.0 FL Neutrophils (%) (Auto) 70.2 % Lymphocytes (%) (Auto) 17.8 % Monocytes (%) (Auto) 10.7 % Eosinophils (%) (Auto) 0.7 % Basophils (%) (Auto) 0.6 % Neutrophils # (Auto) 4.9 TH/MM3 Lymphocytes # (Auto) 1.2 TH/MM3 Monocytes # (Auto) 0.7 TH/MM3 Eosinophils # (Auto) 0.0 TH/MM3 Basophils # (Auto) 0.0 TH/MM3 CBC Comment DIFF FINAL Differential Comment Blood Urea Nitrogen 14 MG/DL Creatinine 0.84 MG/DL Random Glucose 98 MG/DL Total Protein 8.0 GM/DL Albumin 4.2 GM/DL Calcium Level 9.3 MG/DL Alkaline Phosphatase 70 U/L Aspartate Amino Transf (AST/SGOT) 19 U/L Alanine Aminotransferase (ALT/SGPT) 18 U/L Total Bilirubin 0.4 MG/DL Sodium Level 140 MEQ/L Potassium Level 3.9 MEQ/L Chloride Level 108 MEQ/L Carbon Dioxide Level 24.5 MEQ/L Anion Gap 8 MEQ/L Estimat Glomerular Filtration Rate 89 ML/MIN Salicylates Level 3.1 MG/DL Urine Opiates Screen NEG Acetaminophen Level LESS THAN 2.0 MCG/ML Urine Barbiturates Screen NEG Urine Amphetamines Screen NEG Urine Benzodiazepines Screen NEG Urine Cocaine Screen POS Urine Cannabinoids Screen NEG Ethyl Alcohol Level LESS THAN 3 MG/DL MDM Supervised Visit with LAURIE: No Narrative Course I was asked to discharge this patient. This patient was brought in on BA, initially seen by Dr. Lux and medically cleared. She was evaluated by KRIS Haines and the Jackson act was lifted. Please see their notes for details. Patient is diagnosed with substance abuse mood disorder and plans to follow up with Keshav Sesay on Friday. She was prescribed Seroquel at last visit and states that she will fill and take the medication as prescribed. She contracts for her safety and has no medical complaints on my evaluation. She is stable and discharged home. Sepsis Criteria Severe Sepsis (+one): Hypotension Diagnosis Primary Impression: Substance induced mood disorder Referrals: [facility] (Out patient) Patient Instructions: General Instructions, Mood Disorders (ED) Additional Instruction: Take medications as prescribed. Follow-up with [facility] as discussed. Return to the ED for any urgent or emergent medical condition. Med/Other Pt SpecificInfo: Prescription(s) given Disposition: DISCHARGE HOME Condition: Stable Rosa Lopez Jun 28, 2017 18:36
--- NOTE | 2017-06-28 18:38 | PD ---
History of Present Illness Chief Complaint: Psychiatric Symptoms Time Seen by Provider: 18:15 Travel History International Travel<30 Days: No Contact w/Intl Traveler<30days: No Known affected area: No Legal Status Legal Status: Jackson Act Jackson Act Signed By: Ofelia Matthews Jackson Act Comment: BA signed by: KYLAH PALACIOS Badge#[id number], Caes#[id number] History of Present Illness: History of Present Illness HPI Patient is a 46-year-old female with history of bipolar disorder,substance use disorder who is brought to the emergency room by law enforcement under a Jackson act. The Jackson act alleges that the patient reported she wanted to kill herself by overdosing or by cutting her wrists. She did not make any attempts at harming herself. Patient presents with positive toxicology for cocaine. Patient tells me that she is here because she was unable to get her prescriptions filled when she left [facility] [facility] and that she didn't know where to go to get them filled. She was released from inpatient psychiatric treatment on Jun 25, 2017 after she reported that she had overdosed on Seroquel . She had an appointment at [facility] on June 26, 2017 but failed to keep that appointment. EMR reviewed. Patient is seen. She has been monitored here in J pod. Has presented no behavioral concerns and no suicidality. She is alert, oriented, calm and cooperative. There is no indication of any psychosis, no will, not depressed. There is no suicidal or homicidal ideation. PFSH Past Medical History Asthma: Yes (childhood asthma) Blood Disorders: No Anxiety: Yes Depression: Yes Heart Rhythm Problems: No Cancer: No Cardiovascular Problems: No Diminished Hearing: No Endocrine: No Genitourinary: No Hypertension: Yes Immune Disorder: No Implanted Vascular Access Dvce: No Musculoskeletal: No Neurologic: No Psychiatric: Yes (schizoprenia) Reproductive: No Respiratory: Yes ?: Not LMP: 05/29/17 : 6 Para: 4 Miscarriage: 0 : 2 Tubal Ligation: Yes Past Surgical History Section: Yes (X 4) Psychiatric History Psychiatric History Hx Psychiatric Treatment: Last inpatietn stay at [facility] on June 22, 2017 to June 25, 2017. History of Inpatient Treatment: Yes Guns or firearms in home: No Social History [place] female, unemployed. Homeless. Hx Alcohol Use: Yes (OCCASIONAL) Hx Tobacco Use: Yes ( 1/2 PPD) Hx Substance Use: Yes (Admits to using cocaine) Substance Use Type: Cocaine Other Substances Used: denies prior substance abuse treatment Hx of Substance Use Treatment: No Family Psychiatric History Negative Allergies-Medications (Allergen,Severity, Reaction): Coded Allergies: sulfamethoxazole (Unverified Allergy, Severe, 04/22/17) Per pt. trimethoprim (Unverified Allergy, Severe, 04/22/17) Per pt. Sulfa (Sulfonamide Antibiotics) (Unverified Allergy, Intermediate, Hives, 04/22/17) Per pt. Reported Meds & Prescriptions Reported Meds & Active Scripts Active Dok (Docusate Sodium) 100 Mg Cap 100 Mg PO Q12H Reported Zoloft (Sertraline HCl) 100 Mg Tab 100 Mg PO DAILY Risperdal (Risperidone) 3 Mg Tab 3 Mg PO HS Seroquel (Quetiapine Fumarate) 400 Mg Tab 400 Mg PO DAILY Review of Systems Except as stated in HPI: all other systems reviewed are Neg Mental Status Examination Appearance: Appropriate Consciousness: Alert Orientation: x4 Motor Activity: Normal gait Speech: Unremarkable Language: Adequate Fund of Knowledge: Adequate Attention and Concentration: Adequate Memory: Unremarkable Mood: Appropriate Affect: Appropriate Thought Process & Associations: Intact, Logical, Goal directed Thought Content: Appropriate Hallucination Type: None Delusion Type: None Suicidal Ideation: No Suicidal Plan: No Suicidal Intention: No Homicidal Ideation: No Homicidal Plan: No Homicidal Intention: No Insight: Poor Judgment: Impulsive MDM Medical Decision Making Medical Record Reviewed: Yes Assessment/Plan Patient is a 46-year-old female with history of bipolar disorder, substance use disorder who is brought to the emergency room by law enforcement under a Jackson act. The Jackson act alleges that the patient reported she wanted to kill herself by overdosing or by cutting her wrists. She did not make any attempts at harming herself. Patient presents with positive toxicology for cocaine. Patient tells me that she is here because she was unable to get her prescriptions filled when she left [facility] [place] and that she didn't know where to go to get them filled. She had an appointment scheduled for June 26, 2017 but failed to keep that appointment. At this time the patient is not suicidal or homicidal. She does nto meet criteria under the Jackson act law. Psychoeducation is provided. BA is lifted. Does nto meet criteria under Jackson act. Main issue seems to be continued cocaine use. To follow up with [facility]. Orders Orders Complete Blood Count With Diff (06/28/17 10:04) Comprehensive Metabolic Panel (06/28/17 10:04) Psych Screen (06/28/17 10:04) Drug Screen, Random Urine (06/28/17 10:04) Alcohol (Ethanol) (06/28/17 10:04) Salicylates (Aspirin) (06/28/17 10:04) Tylenol (Acetaminophen) (06/28/17 10:04) Diet Regular Basic (06/28/17 Lunch) Diet Regular Basic (06/28/17 Dinner) Results Vital Signs Date Time Temp Pulse Resp B/P (MAP) Pulse Ox O2 Delivery O2 Flow Rate FiO2 06/28/17 18:34 06/28/17 18:33 89 20 135/77 (96) 95 Room Air 06/28/17 14:23 89 20 135/77 (96) Room Air 06/28/17 09:57 98.5 113 16 132/82 (99) 95 Room Air Laboratory Tests Test 06/28/17 10:20 White Blood Count 7.0 Red Blood Count 4.26 Hemoglobin 12.8 Hematocrit 38.3 Mean Corpuscular Volume 89.9 Mean Corpuscular Hemoglobin 30.1 Mean Corpuscular Hemoglobin Concent 33.5 Red Cell Distribution Width 12.7 Platelet Count 206 Mean Platelet Volume 9.0 Neutrophils (%) (Auto) 70.2 Lymphocytes (%) (Auto) 17.8 Monocytes (%) (Auto) 10.7 Eosinophils (%) (Auto) 0.7 Basophils (%) (Auto) 0.6 Neutrophils # (Auto) 4.9 Lymphocytes # (Auto) 1.2 Monocytes # (Auto) 0.7 Eosinophils # (Auto) 0.0 Basophils # (Auto) 0.0 CBC Comment DIFF FINAL Differential Comment Blood Urea Nitrogen 14 Creatinine 0.84 Random Glucose 98 Total Protein 8.0 Albumin 4.2 Calcium Level 9.3 Alkaline Phosphatase 70 Aspartate Amino Transf (AST/SGOT) 19 Alanine Aminotransferase (ALT/SGPT) 18 Total Bilirubin 0.4 Sodium Level 140 Potassium Level 3.9 Chloride Level 108 Carbon Dioxide Level 24.5 Anion Gap 8 Estimat Glomerular Filtration Rate 89 Salicylates Level 3.1 Urine Opiates Screen NEG Acetaminophen Level LESS THAN 2.0 Urine Barbiturates Screen NEG Urine Amphetamines Screen NEG Urine Benzodiazepines Screen NEG Urine Cocaine Screen POS Urine Cannabinoids Screen NEG Ethyl Alcohol Level LESS THAN 3 Diagnosis Primary Impression: Substance induced mood disorder Additional Impression: Cocaine abuse Psychiatrically Cleared: Yes Referrals: [facility] (Out patient) Patient Instructions: General Instructions, Mood Disorders (ED) Additional Instructions: Take medications as prescribed. Follow-up with [facility] as discussed. Return to the ED for any urgent or emergent medical condition. Disposition: 01 DISCHARGE HOME Condition: Stable Problem Qualifiers Amisha March Jun 28, 2017 18:38
--- NOTE | 2017-06-28 18:38 | PD ---
History of Present Illness Chief Complaint: Psychiatric Symptoms Time Seen by Provider: 18:15 Travel History International Travel<30 Days: No Contact w/Intl Traveler<30days: No Known affected area: No Legal Status Legal Status: Jackson Act Jackson Act Signed By: Ofelia Matthews Jackson Act Comment: BA signed by: KYLAH PALACIOS Badge#[id number], Caes#[id number] History of Present Illness: History of Present Illness HPI Patient is a 46-year-old female with history of bipolar disorder,substance use disorder who is brought to the emergency room by law enforcement under a Jackson act. The Jackson act alleges that the patient reported she wanted to kill herself by overdosing or by cutting her wrists. She did not make any attempts at harming herself. Patient presents with positive toxicology for cocaine. Patient tells me that she is here because she was unable to get her prescriptions filled when she left [facility] [place] and that she didn't know where to go to get them filled. She was released from inpatient psychiatric treatment on Jun 25, 2017 after she reported that she had overdosed on Seroquel . She had an appointment at [facility] on June 26, 2017 but failed to keep that appointment. EMR reviewed. Patient is seen. She has been monitored here in J pod. Has presented no behavioral concerns and no suicidality. She is alert, oriented, calm and cooperative. There is no indication of any psychosis, no will, not depressed. There is no suicidal or homicidal ideation. PFSH Past Medical History Asthma: Yes (childhood asthma) Blood Disorders: No Anxiety: Yes Depression: Yes Heart Rhythm Problems: No Cancer: No Cardiovascular Problems: No Diminished Hearing: No Endocrine: No Genitourinary: No Hypertension: Yes Immune Disorder: No Implanted Vascular Access Dvce: No Musculoskeletal: No Neurologic: No Psychiatric: Yes (schizoprenia) Reproductive: No Respiratory: Yes ?: Not LMP: 05/29/17 : 6 Para: 4 Miscarriage: 0 : 2 Tubal Ligation: Yes Past Surgical History Section: Yes (X 4) Psychiatric History Psychiatric History Hx Psychiatric Treatment: Last inpatietn stay at [facility] [place] on June 22, 2017 to June 25, 2017. History of Inpatient Treatment: Yes Guns or firearms in home: No Social History [place] female, unemployed. Homeless. Hx Alcohol Use: Yes (OCCASIONAL) Hx Tobacco Use: Yes ( 1/2 PPD) Hx Substance Use: Yes (Admits to using cocaine) Substance Use Type: Cocaine Other Substances Used: denies prior substance abuse treatment Hx of Substance Use Treatment: No Family Psychiatric History Negative Allergies-Medications (Allergen,Severity, Reaction): Coded Allergies: sulfamethoxazole (Unverified Allergy, Severe, 04/22/17) Per pt. trimethoprim (Unverified Allergy, Severe, 04/22/17) Per pt. Sulfa (Sulfonamide Antibiotics) (Unverified Allergy, Intermediate, Hives, 04/22/17) Per pt. Reported Meds & Prescriptions Reported Meds & Active Scripts Active Dok (Docusate Sodium) 100 Mg Cap 100 Mg PO Q12H Reported Zoloft (Sertraline HCl) 100 Mg Tab 100 Mg PO DAILY Risperdal (Risperidone) 3 Mg Tab 3 Mg PO HS Seroquel (Quetiapine Fumarate) 400 Mg Tab 400 Mg PO DAILY Review of Systems Except as stated in HPI: all other systems reviewed are Neg Mental Status Examination Appearance: Appropriate Consciousness: Alert Orientation: x4 Motor Activity: Normal gait Speech: Unremarkable Language: Adequate Fund of Knowledge: Adequate Attention and Concentration: Adequate Memory: Unremarkable Mood: Appropriate Affect: Appropriate Thought Process & Associations: Intact, Logical, Goal directed Thought Content: Appropriate Hallucination Type: None Delusion Type: None Suicidal Ideation: No Suicidal Plan: No Suicidal Intention: No Homicidal Ideation: No Homicidal Plan: No Homicidal Intention: No Insight: Poor Judgment: Impulsive MDM Medical Decision Making Medical Record Reviewed: Yes Assessment/Plan Patient is a 46-year-old female with history of bipolar disorder, substance use disorder who is brought to the emergency room by law enforcement under a Jackson act. The Jackson act alleges that the patient reported she wanted to kill herself by overdosing or by cutting her wrists. She did not make any attempts at harming herself. Patient presents with positive toxicology for cocaine. Patient tells me that she is here because she was unable to get her prescriptions filled when she left [facility] [place] and that she didn't know where to go to get them filled. She had an appointment scheduled for June 26, 2017 but failed to keep that appointment. At this time the patient is not suicidal or homicidal. She does nto meet criteria under the Jackson act law. Psychoeducation is provided. BA is lifted. Does nto meet criteria under Jackson act. Main issue seems to be continued cocaine use. To follow up with [facility]. Orders Orders Complete Blood Count With Diff (06/28/17 10:04) Comprehensive Metabolic Panel (06/28/17 10:04) Psych Screen (06/28/17 10:04) Drug Screen, Random Urine (06/28/17 10:04) Alcohol (Ethanol) (06/28/17 10:04) Salicylates (Aspirin) (06/28/17 10:04) Tylenol (Acetaminophen) (06/28/17 10:04) Diet Regular Basic (06/28/17 Lunch) Diet Regular Basic (06/28/17 Dinner) Results Vital Signs Date Time Temp Pulse Resp B/P (MAP) Pulse Ox O2 Delivery O2 Flow Rate FiO2 06/28/17 18:34 06/28/17 18:33 89 20 135/77 (96) 95 Room Air 06/28/17 14:23 89 20 135/77 (96) Room Air 06/28/17 09:57 98.5 113 16 132/82 (99) 95 Room Air Laboratory Tests Test 06/28/17 10:20 White Blood Count 7.0 Red Blood Count 4.26 Hemoglobin 12.8 Hematocrit 38.3 Mean Corpuscular Volume 89.9 Mean Corpuscular Hemoglobin 30.1 Mean Corpuscular Hemoglobin Concent 33.5 Red Cell Distribution Width 12.7 Platelet Count 206 Mean Platelet Volume 9.0 Neutrophils (%) (Auto) 70.2 Lymphocytes (%) (Auto) 17.8 Monocytes (%) (Auto) 10.7 Eosinophils (%) (Auto) 0.7 Basophils (%) (Auto) 0.6 Neutrophils # (Auto) 4.9 Lymphocytes # (Auto) 1.2 Monocytes # (Auto) 0.7 Eosinophils # (Auto) 0.0 Basophils # (Auto) 0.0 CBC Comment DIFF FINAL Differential Comment Blood Urea Nitrogen 14 Creatinine 0.84 Random Glucose 98 Total Protein 8.0 Albumin 4.2 Calcium Level 9.3 Alkaline Phosphatase 70 Aspartate Amino Transf (AST/SGOT) 19 Alanine Aminotransferase (ALT/SGPT) 18 Total Bilirubin 0.4 Sodium Level 140 Potassium Level 3.9 Chloride Level 108 Carbon Dioxide Level 24.5 Anion Gap 8 Estimat Glomerular Filtration Rate 89 Salicylates Level 3.1 Urine Opiates Screen NEG Acetaminophen Level LESS THAN 2.0 Urine Barbiturates Screen NEG Urine Amphetamines Screen NEG Urine Benzodiazepines Screen NEG Urine Cocaine Screen POS Urine Cannabinoids Screen NEG Ethyl Alcohol Level LESS THAN 3 Diagnosis Primary Impression: Substance induced mood disorder Additional Impression: Cocaine abuse Psychiatrically Cleared: Yes Referrals: [facility] (Out patient) Patient Instructions: General Instructions, Mood Disorders (ED) Additional Instructions: Take medications as prescribed. Follow-up with [facility] as discussed. Return to the ED for any urgent or emergent medical condition. Disposition: 01 DISCHARGE HOME Condition: Stable Problem Qualifiers Amisha March Jun 28, 2017 18:38
--- NOTE | 2017-06-28 18:38 | PD ---
History of Present Illness Chief Complaint: Psychiatric Symptoms Time Seen by Provider: 18:15 Travel History International Travel<30 Days: No Contact w/Intl Traveler<30days: No Known affected area: No Legal Status Legal Status: Jackson Act Jackson Act Signed By: Ofelia Matthews Jackson Act Comment: BA signed by: KYLAH PALACIOS Badge#[id number], Caes#[id number] History of Present Illness: History of Present Illness HPI Patient is a 46-year-old female with history of bipolar disorder,substance use disorder who is brought to the emergency room by law enforcement under a Jackson act. The Jackson act alleges that the patient reported she wanted to kill herself by overdosing or by cutting her wrists. She did not make any attempts at harming herself. Patient presents with positive toxicology for cocaine. Patient tells me that she is here because she was unable to get her prescriptions filled when she [place] [facility] and that she didn't know where to go to get them filled. She was released from inpatient psychiatric treatment on Jun 25, 2017 after she reported that she had overdosed on Seroquel . She had an appointment at [facility] on June 26, 2017 but failed to keep that appointment. EMR reviewed. Patient is seen. She has been monitored here in [facility] pod. Has presented no behavioral concerns and no suicidality. She is alert, oriented, calm and cooperative. There is no indication of any psychosis, no will, not depressed. There is no suicidal or homicidal ideation. PFSH Past Medical History Asthma: Yes (childhood asthma) Blood Disorders: No Anxiety: Yes Depression: Yes Heart Rhythm Problems: No Cancer: No Cardiovascular Problems: No Diminished Hearing: No Endocrine: No Genitourinary: No Hypertension: Yes Immune Disorder: No Implanted Vascular Access Dvce: No Musculoskeletal: No Neurologic: No Psychiatric: Yes (schizoprenia) Reproductive: No Respiratory: Yes ?: Not LMP: 05/29/17 : 6 Para: 4 Miscarriage: 0 : 2 Tubal Ligation: Yes Past Surgical History Section: Yes (X 4) Psychiatric History Psychiatric History Hx Psychiatric Treatment: Last inpatietn stay [place] [facility] [place] June [place], 2017 to June 25, 2017. History of Inpatient Treatment: Yes Guns or firearms in home: No Social History Sing[place] female, unemployed. Homeless. Hx Alcohol Use: Yes (OCCASIONAL) Hx Tobacco Use: Yes ( 1/2 PPD) Hx Substance Use: Yes (Admits to using cocaine) Substance Use Type: Cocaine Other Substances Used: denies prior substance abuse treatment Hx of Substance Use Treatment: No Family Psychiatric History Negative Allergies-Medications (Allergen,Severity, Reaction): Coded Allergies: sulfamethoxazole (Unverified Allergy, Severe, 04/22/17) Per pt. trimethoprim (Unverified Allergy, Severe, 04/22/17) Per pt. Sulfa (Sulfonamide Antibiotics) (Unverified Allergy, Intermediate, Hives, 04/22/17) Per pt. Reported Meds & Prescriptions Reported Meds & Active Scripts Active Dok (Docusate Sodium) 100 Mg Cap 100 Mg PO Q12H Reported Zoloft (Sertraline HCl) 100 Mg Tab 100 Mg PO DAILY Risperdal (Risperidone) 3 Mg Tab 3 Mg PO HS Seroquel (Quetiapine Fumarate) 400 Mg Tab 400 Mg PO DAILY Review of Systems Except as stated in HPI: all other systems reviewed are Neg Mental Status Examination Appearance: Appropriate Consciousness: Alert Orientation: x4 Motor Activity: Normal gait Speech: Unremarkable Language: Adequate Fund of Knowledge: Adequate Attention and Concentration: Adequate Memory: Unremarkable Mood: Appropriate Affect: Appropriate Thought Process & Associations: Intact, Logical, Goal directed Thought Content: Appropriate Hallucination Type: None Delusion Type: None Suicidal Ideation: No Suicidal Plan: No Suicidal Intention: No Homicidal Ideation: No Homicidal Plan: No Homicidal Intention: No Insight: Poor Judgment: Impulsive MDM Medical Decision Making Medical Record Reviewed: Yes Assessment/Plan Patient is a 46-year-old female with history of bipolar disorder, substance use disorder who is brought to the emergency room by law enforcement under a Jackson act. The Jackson act alleges that the patient reported she wanted to kill herself by overdosing or by cutting her wrists. She did not make any attempts at harming herself. Patient presents with positive toxicology for cocaine. Patient tells me that she is here because she was unable to get her prescriptions filled when she left [facility] and that she didn't know where to go to get them filled. She had an appointment scheduled for June 26, 2017 but failed to keep that appointment. At this time the patient is not suicidal or homicidal. She does nto meet criteria under the Jackson act law. Psychoeducation is provided. BA is lifted. Does nto meet criteria under Jackson act. Main issue seems to be continued cocaine use. To follow up with [facility]. Orders Orders Complete Blood Count With Diff (06/28/17 10:04) Comprehensive Metabolic Panel (06/28/17 10:04) Psych Screen (06/28/17 10:04) Drug Screen, Random Urine (06/28/17 10:04) Alcohol (Ethanol) (06/28/17 10:04) Salicylates (Aspirin) (06/28/17 10:04) Tylenol (Acetaminophen) (06/28/17 10:04) Diet Regular Basic (06/28/17 Lunch) Diet Regular Basic (06/28/17 Dinner) Results Vital Signs Date Time Temp Pulse Resp B/P (MAP) Pulse Ox O2 Delivery O2 Flow Rate FiO2 06/28/17 18:34 06/28/17 18:33 89 20 135/77 (96) 95 Room Air 06/28/17 14:23 89 20 135/77 (96) Room Air 06/28/17 09:57 98.5 113 16 132/82 (99) 95 Room Air Laboratory Tests Test 06/28/17 10:20 White Blood Count 7.0 Red Blood Count 4.26 Hemoglobin 12.8 Hematocrit 38.3 Mean Corpuscular Volume 89.9 Mean Corpuscular Hemoglobin 30.1 Mean Corpuscular Hemoglobin Concent 33.5 Red Cell Distribution Width 12.7 Platelet Count 206 Mean Platelet Volume 9.0 Neutrophils (%) (Auto) 70.2 Lymphocytes (%) (Auto) 17.8 Monocytes (%) (Auto) 10.7 Eosinophils (%) (Auto) 0.7 Basophils (%) (Auto) 0.6 Neutrophils # (Auto) 4.9 Lymphocytes # (Auto) 1.2 Monocytes # (Auto) 0.7 Eosinophils # (Auto) 0.0 Basophils # (Auto) 0.0 CBC Comment DIFF FINAL Differential Comment Blood Urea Nitrogen 14 Creatinine 0.84 Random Glucose 98 Total Protein 8.0 Albumin 4.2 Calcium Level 9.3 Alkaline Phosphatase 70 Aspartate Amino Transf (AST/SGOT) 19 Alanine Aminotransferase (ALT/SGPT) 18 Total Bilirubin 0.4 Sodium Level 140 Potassium Level 3.9 Chloride Level 108 Carbon Dioxide Level 24.5 Anion Gap 8 Estimat Glomerular Filtration Rate 89 Salicylates Level 3.1 Urine Opiates Screen NEG Acetaminophen Level LESS THAN 2.0 Urine Barbiturates Screen NEG Urine Amphetamines Screen NEG Urine Benzodiazepines Screen NEG Urine Cocaine Screen POS Urine Cannabinoids Screen NEG Ethyl Alcohol Level LESS THAN 3 Diagnosis Primary Impression: Substance induced mood disorder Additional Impression: Cocaine abuse Psychiatrically Cleared: Yes Referrals: [facility] (Out patient) Patient Instructions: General Instructions, Mood Disorders (ED) Additional Instructions: Take medications as prescribed. Follow-up with [facility] as discussed. Return to the ED for any urgent or emergent medical condition. Disposition: 01 DISCHARGE HOME Condition: Stable Problem Qualifiers Amisha March Jun 28, 2017 18:38
== END 2017-06-28 18:48 | disposition home or self-care (01) ==
LOC: NEPD 09:55 → NEPJ 18:48
DX: F14.14 Cocaine abuse with cocaine-induced mood disorder (principal); F31.9 Bipolar disorder, unspecified; F17.200 Nicotine dependence, unspecified, uncomplicated; Z79.899 Other long term (current) drug therapy
CPT/HCPCS: 80053; 80307; 85025; 99284

== ENCOUNTER 2017-08-30 11:18 | Emergency (ER) | payer SELFPAY ==
[~2017-08-30] VITALS: Ht 154.9 cm; Wt 69.5 kg
[2017-08-30 11:21] VITALS: BP 135/84; PULSE 90; RESP 14; TEMP 97.9; O2SAT 96
[2017-08-30] MEDS ORDERED: predniSONE 20 MG TAB PO ONE (11:45)
--- NOTE | 2017-08-30 11:54 | PD ---
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 Patient has significant psychiatric history and a history of asthma. Patient states she was treated for pneumonia in April with an outpatient prescription for antibiotics. She states the cough resolved and she has had no issues until approximately 4 weeks ago with she started coughing again. This time the cough is nonproductive. She states it is worse at night when she lays down. She denies any fevers or chills. She still smokes half a pack cigarettes a day. Patient states the vaginal discharge is significant weight and has been there for approximately 2 weeks. She denies any vaginal or pelvic pain, dysuria, hematuria. She states she has intermittent itchiness associated with the vaginal discharge. She denies any new sexual partners. She states she has a history of bacterial vaginosis. She believes that is what she again. PFSH Past Medical History Asthma: Yes (childhood asthma) Blood Disorders: No Anxiety: Yes Depression: Yes Heart Rhythm Problems: No Cancer: No Cardiovascular Problems: No Diminished Hearing: No Endocrine: No Genitourinary: No Hypertension: Yes Immune Disorder: No Implanted Vascular Access Dvce: No Musculoskeletal: No Neurologic: No Psychiatric: Yes (schizoprenia) Reproductive: No Respiratory: Yes ?: Not : 6 Para: 4 Miscarriage: 0 : 2 Tubal Ligation: Yes Past Surgical History Section: Yes (X 4) Social History Alcohol Use: Yes (OCCASIONAL) Tobacco Use: Yes ( 1/2 PPD) Substance Use: Yes (Admits to using cocaine) Allergies-Medications (Allergen,Severity, Reaction): Coded Allergies: sulfamethoxazole (Unverified Allergy, Severe, 08/30/17) Per pt. trimethoprim (Unverified Allergy, Severe, 08/30/17) Per pt. Sulfa (Sulfonamide Antibiotics) (Unverified Allergy, Intermediate, Hives, 08/30/17) Per pt. Reported Meds & Prescriptions Reported Meds & Active Scripts Active Ventolin Hfa 18 GM Inh (Albuterol Sulfate) 90 Mcg/Act Aer 2 Puff INH Q4-6H PRN Dok (Docusate Sodium) 100 Mg Cap 100 Mg PO Q12H Reported Zoloft (Sertraline HCl) 100 Mg Tab 100 Mg PO DAILY Risperdal (Risperidone) 3 Mg Tab 3 Mg PO HS Seroquel (Quetiapine Fumarate) 400 Mg Tab 400 Mg PO DAILY Review of Systems Except as stated in HPI: all other systems reviewed are Neg Physical Exam Narrative GENERAL: Well-nourished, well-developed black 46-year-old female patient in no acute distress. Nontoxic appearing. SKIN: Focused skin assessment warm/dry. HEAD: Normocephalic. Atraumatic. EYES: No scleral icterus. No injection or drainage. THROAT: No pharyngeal injection, exudates, or tonsillar hypertrophy. Airway is patent. NECK: Supple, trachea midline. No JVD or lymphadenopathy. CARDIOVASCULAR: Regular rate and rhythm without murmurs, gallops, or rubs. RESPIRATORY: Inspiratory and expiratory wheezing noted throughout bilateral lungs. No accessory muscle use. GASTROINTESTINAL: Abdomen soft, non-tender, nondistended. GENITOURINARY: Normal external genitalia without lesions or erythema. Vaginal vault without blood or drainage. Cervical os was closed with thick white drainage. No cervical motion tenderness. Uterus nontender and nonenlarged. Bilateral adnexa nontender without masses. MUSCULOSKELETAL: No obvious deformity, cyanosis, or edema. Data Data Last Documented VS Vital Signs Date Time Temp Pulse Resp B/P (MAP) Pulse Ox O2 Delivery O2 Flow Rate FiO2 08/30/17 14:14 08/30/17 11:21 97.9 90 14 96 Orders Orders Chest, Single Ap (08/30/17 11:43) Prednisone (Deltasone) (08/30/17 11:45) Albuterol-Ipratropium Neb (Duoneb Neb) (08/30/17 11:45) Gc And Chlamydia Pcr (08/30/17 11:45) Wet Prep Profile (08/30/17 11:45) Urinalysis - C+S If Indicated (08/30/17 11:45) Azithromycin Powd Pack (Zithromax Powd P (08/30/17 13:30) Ceftriaxone Inj (Rocephin Inj) (08/30/17 13:30) Lidocaine 1% Inj (50 Ml) (Xylocaine 1% I (08/30/17 13:30) Metronidazole (Flagyl) (08/30/17 13:30) Ondansetron Odt (Zofran Odt) (08/30/17 13:30) Ed Discharge Order (08/30/17 13:45) Labs Laboratory Tests Test 08/30/17 12:00 08/30/17 12:50 08/30/17 12:52 Urine Color YELLOW Urine Turbidity CLEAR Urine pH 7.0 Urine Specific [place] 1.026 Urine Protein TRACE mg/dL Urine Glucose (UA) NEG mg/dL Urine Ketones NEG mg/dL Urine Occult Blood NEG Urine Nitrite NEG Urine Bilirubin NEG Urine Urobilinogen 2.0 MG/DL Urine Leukocyte Esterase NEG Urine RBC LESS THAN 1 /hpf Urine WBC 1 /hpf Urine Squamous Epithelial Cells <1 /hpf Urine Mucus FEW /lpf Microscopic Urinalysis Comment CULT NOT INDICATED Clue Cells (Wet Prep) NONE SEEN Vaginal Trichomonas (Wet Prep) PRESENT Vaginal Yeast (Wet Prep) NONE SEEN MDM Medical Decision Making Medical Screen Exam Complete: Yes Emergency Medical Condition: Yes Differential Diagnosis Differential diagnoses include but not limited to STD, candidal infection, bacterial vaginosis, asthma exacerbation, bronchitis, URI Narrative Course Patient was given dub-neb and 60 PO prednisone for wheezing and cough. Chest X- ray found no acute disease. Pelvic exam performed in the presence of RN and cultures obtained and sent to lab. UA sounds no acute abnormality. Wet prep is positive for trichomonas. Treated with 2G PO Flagyl. GC and chlamydia pending. Patient will be called with results if positive. Patient treated prophylactically with 250 mg IM Rocephin, 1GM PO Azithromycin. Patient discharged home at this time with instructions to always practice safe sex and [facility]. Patient's wheezing resolved at time of discharge, albuterol inhaler prescription given. Patient given instructions to return to the emergency department with any worsening condition. Diagnosis Primary Impression: Trichomonas infection Additional Impression: Bronchitis Referrals: [facility] Patient Instructions: General Instructions, Trichomoniasis (ED) Additional Instructions: Please return to emergency department if your symptoms return or worsen. Follow up with your primary care provider. [facility] with the [facility] for further STD testing. Always practice safe sex. Med/Other Pt SpecificInfo: Prescription(s) given Scripts Albuterol 18 GM Inh (Ventolin Hfa 18 GM Inh) 90 Mcg/Act Aer 2 PUFF INH Q4-6H Y for SHORTNESS OF BREATH, #1 INHALER 0 Refills Prov: Beata Crocker 08/30/17 Disposition: 01 DISCHARGE HOME Condition: Stable Beata Crocker Aug 30, 2017 11:54
[2017-08-30] MEDS: RESP: ALBUTEROL 2.5 MG/IPRATROPIUM 0.5 MG NEB (SCH) INH ×2 (11:58→11:59)
[2017-08-30 12:14] LABS: BILIRUBIN, URINE NEG (NEG); BLOOD, URINE NEG (NEG); GLUCOSE,URINE NEG (NEG); KETONE, URINE NEG (NEG); MUCUS URINE FEW /lpf (OCC); NITRITE,URINE NEG (NEG); SQUAMOUS EPITHELIAL CELL URINE <1 /hpf (0-5); URINE COLOR YELLOW (YELLW/STRAW); URINE LEUKOCYTE ESTERASE NEG (NEG)
--- NOTE | 2017-08-30 12:27 | RADRPT ---
EXAM DATE/TIME: 08/30/2017 12:03 [place] COMPARISON: No previous studies available for comparison. INDICATIONS : Cough for 3 days MEDICAL HISTORY : None. SURGICAL HISTORY : None. ENCOUNTER: Initial ACUITY: 3 days PAIN SCORE: 0/10 LOCATION: Bilateral chest FINDINGS: A single view of the chest demonstrates the lungs to be symmetrically aerated without evidence of mas s, infiltrate or effusion. The cardiomediastinal contours are unremarkable. Osseous structures are intact. CONCLUSION: No acute disease. Hesham Israel MD FACR on August 30, 2017 at 12:25 Board Certified Radiologist. This report was verified electronically.
[2017-08-30] MEDS ORDERED: AZITHROMYCIN PWD FOR SUSP 1 GM PACKET PO ONE (13:30)
[2017-08-30] MEDS ORDERED: ONDANSETRON ODT 4 MG TAB PO ONE (13:30)
[2017-08-30] MEDS ORDERED: cefTRIAXone 250 MG VIAL IM ONE (13:30)
[2017-08-30] MEDS ORDERED: metroNIDAZOLE 500 MG TAB PO ONE (13:30)
[2017-08-30] MEDS ORDERED: LIDOCAINE HCL 1% 50 ML VIAL IM ONE (13:30)
[2017-08-30] MEDS ORDERED: VENTAER INH (13:44)
== END 2017-08-30 14:13 | disposition home or self-care (01) ==
LOC: NEPC 11:18
DX: A59.9 Trichomoniasis, unspecified (principal); J40 Bronchitis, not specified as acute or chronic; J45.909 Unspecified asthma, uncomplicated; F41.9 Anxiety disorder, unspecified; I10 Essential (primary) hypertension; F20.9 Schizophrenia, unspecified; F17.200 Nicotine dependence, unspecified, uncomplicated; Z79.899 Other long term (current) drug therapy; Z88.2 Allergy status to sulfonamides
CPT/HCPCS: 71010; 81001; 87210; 87491; 87591; 94640; 94664; 96372; 99284; J0696; J7512

== ENCOUNTER 2017-09-11 08:48 | Emergency (ER) | payer OTHER ==
[2017-09-11] VITALS (7 sets, daily range): BP systolic 89–146; BP diastolic 50–72; PULSE 66–105; RESP 16–22; TEMP 97.9; O2SAT 98–100
[~2017-09-11 08:48] MED LIST changes: +VENTAER INH
[2017-09-11] MEDS ORDERED: SODIUM CHLOR 0.9% 1000 ML INJ 1,000 ML IV ONE ×3 (08:57→11:00)
[2017-09-11] MEDS ORDERED: LORazepam 2 MG/ML VIAL IV PUSH ONE ×3 (09:00→16:00)
--- NOTE | 2017-09-11 09:03 | PD ---
HPI Chief Complaint: altered mental status Time Seen by Provider: 08:57 Travel History International Travel<30 days: No Contact w/Intl Traveler<30days: No Traveled to known affect area: No History of Present Illness HPI The patient is a 46-year-old [place] female who presents to the emergency department via EMS with the police department for altered mental status. According to EMS the patient admitted to using Flakka earlier today. According to the police the patient apparently broke into a motor vehicle. EMS did place the patient into restraints prior to arrival secondary to violent behavior by the patient. Upon arrival the patient is moving around the bed, will not follow commands, but does admit to using Flakka last night. She is a somewhat poor historian, refuses to answer questions or follow commands during examination. No further information is obtainable from the patient. PFSH Past Medical History Asthma: Yes (childhood asthma) Blood Disorders: No Anxiety: Yes Depression: Yes Heart Rhythm Problems: No Cancer: No Cardiovascular Problems: No Diminished Hearing: No Endocrine: No Genitourinary: No Hypertension: Yes Immune Disorder: No Implanted Vascular Access Dvce: No Musculoskeletal: No Neurologic: No Psychiatric: Yes (schizoprenia) Reproductive: No Respiratory: Yes : 6 Para: 4 Miscarriage: 0 : 2 Tubal Ligation: Yes Past Surgical History Section: Yes (X 4) Social History Alcohol Use: Yes (OCCASIONAL) Tobacco Use: Yes ( 1/2 PPD) Substance Use: Yes (Admits to using cocaine) Allergies-Medications (Allergen,Severity, Reaction): Coded Allergies: sulfamethoxazole (Unverified Allergy, Severe, 09/11/17) Per pt. trimethoprim (Unverified Allergy, Severe, 09/11/17) Per pt. Sulfa (Sulfonamide Antibiotics) (Unverified Allergy, Intermediate, Hives, 09/11/17) Per pt. Reported Meds & Prescriptions Reported Meds & Active Scripts Active Ventolin Hfa 18 GM Inh (Albuterol Sulfate) 90 Mcg/Act Aer 2 Puff INH Q4-6H PRN Dok (Docusate Sodium) 100 Mg Cap 100 Mg PO Q12H Reported Zoloft (Sertraline HCl) 100 Mg Tab 100 Mg PO DAILY Risperdal (Risperidone) 3 Mg Tab 3 Mg PO HS Seroquel (Quetiapine Fumarate) 400 Mg Tab 400 Mg PO DAILY Review of Systems ROS Limitations: Clinical Condition, Altered Mental Status Except as stated in HPI: all other systems reviewed are Neg Neurologic: Positive: Change in Mentation Psychiatric: Positive: Substance Abuse Physical Exam Exam Limitations: Clinical Condition Narrative GENERAL: Eyes open, will not follow commands, but will answer certain questions yes or no. SKIN: Focused skin assessment warm/dry. HEAD: Atraumatic. Normocephalic. EYES: Pupils equal and round. 3 mm bilateral and reactive. ENT: No nasal bleeding or discharge. Mucous membranes pink and moist. NECK: Trachea midline. No JVD. CARDIOVASCULAR: Regular rate and rhythm. No murmur appreciated. RESPIRATORY: No accessory muscle use. Clear to auscultation. Breath sounds equal bilaterally. GASTROINTESTINAL: Abdomen soft, non-tender, nondistended. The patient was noted to have urinated on herself. MUSCULOSKELETAL: No obvious deformities. No clubbing. No cyanosis. No edema. Moves all 4 extremities. NEUROLOGICAL: Eyes open, will answer questions yes or no, certain times. Will not answer questions in regards to name, place, orientation. PSYCHIATRIC: Appears altered. Data Data Last Documented VS Vital Signs Date Time Temp Pulse Resp B/P (MAP) Pulse Ox O2 Delivery O2 Flow Rate FiO2 09/12/17 07:00 98.3 101 16 133/74 (93) 97 Room Air Orders Orders Complete Blood Count With Diff (09/11/17 08:57) Comprehensive Metabolic Panel (09/11/17 08:57) Urinalysis - C+S If Indicated (09/11/17 08:57) Iv Access Insert/Monitor (09/11/17 08:57) Ecg Monitoring (09/11/17 08:57) Oximetry (09/11/17 08:57) Lorazepam Inj (Ativan Inj) (09/11/17 09:00) Sodium Chloride 0.9% Flush (Ns Flush) (09/11/17 09:00) Sodium Chlor 0.9% 1000 Ml Inj (Ns 1000 M (09/11/17 08:57) Drug Screen, Random Urine (09/11/17 08:57) Alcohol (Ethanol) (09/11/17 08:57) Creatine Kinase (Cpk) (09/11/17 08:57) Restraints Non-Violent JENNA.Q3H (09/11/17 08:59) CKMB (09/11/17 09:20) CKMB% (09/11/17 09:20) Urine Culture (09/11/17 09:50) Sodium Chlor 0.9% 1000 Ml Inj (Ns 1000 M (09/11/17 10:45) Sodium Chlor 0.9% 1000 Ml Inj (Ns 1000 M (09/11/17 11:00) Sodium Chlor 0.9% 1000 Ml Inj (Ns 1000 M (09/11/17 13:00) Lorazepam Inj (Ativan Inj) (09/11/17 13:15) Lorazepam Inj (Ativan Inj) (09/11/17 16:00) Haloperidol Inj (Haldol Inj) (09/11/17 17:00) Ed Discharge Order (09/12/17 07:05) Labs Laboratory Tests Test 09/11/17 09:20 09/11/17 09:50 09/11/17 09:52 White Blood Count 7.4 TH/MM3 Red Blood Count 4.17 MIL/MM3 Hemoglobin 12.1 GM/DL Hematocrit 36.4 % Mean Corpuscular Volume 87.5 FL Mean Corpuscular Hemoglobin 29.1 PG Mean Corpuscular Hemoglobin Concent 33.2 % Red Cell Distribution Width 13.3 % Platelet Count 240 TH/MM3 Mean Platelet Volume 8.9 FL Neutrophils (%) (Auto) 52.7 % Lymphocytes (%) (Auto) 31.1 % Monocytes (%) (Auto) 13.1 % Eosinophils (%) (Auto) 2.5 % Basophils (%) (Auto) 0.6 % Neutrophils # (Auto) 3.9 TH/MM3 Lymphocytes # (Auto) 2.3 TH/MM3 Monocytes # (Auto) 1.0 TH/MM3 Eosinophils # (Auto) 0.2 TH/MM3 Basophils # (Auto) 0.0 TH/MM3 CBC Comment DIFF FINAL Differential Comment Blood Urea Nitrogen 21 MG/DL Creatinine 1.25 MG/DL Random Glucose 92 MG/DL Total Protein 7.0 GM/DL Albumin 3.1 GM/DL Calcium Level 8.9 MG/DL Alkaline Phosphatase 76 U/L Aspartate Amino Transf (AST/SGOT) 27 U/L Alanine Aminotransferase (ALT/SGPT) 15 U/L Total Bilirubin 0.2 MG/DL Sodium Level 137 MEQ/L Potassium Level 4.4 MEQ/L Chloride Level 110 MEQ/L Carbon Dioxide Level 15.8 MEQ/L Anion Gap 11 MEQ/L Estimat Glomerular Filtration Rate 56 ML/MIN Total Creatine Kinase 300 U/L Creatine Kinase MB 1.9 NG/ML Creatine Kinase MB % 0.6 % Ethyl Alcohol Level LESS THAN 3 MG/DL Urine Color YELLOW Urine Turbidity CLEAR Urine pH 5.5 Urine Specific [place] 1.032 Urine Protein 100 mg/dL Urine Glucose (UA) NEG mg/dL Urine Ketones 10 mg/dL Urine Occult Blood NEG Urine Nitrite NEG Urine Bilirubin NEG Urine Urobilinogen 2.0 MG/DL Urine Leukocyte Esterase NEG Urine RBC LESS THAN 1 /hpf Urine WBC 2 /hpf Urine Squamous Epithelial Cells 3 /hpf Urine Bacteria OCC /hpf Urine Hyaline Casts 7 /lpf Urine Mucus MOD /lpf Microscopic Urinalysis Comment CATH-CULTURE IND Urine Opiates Screen NEG Urine Barbiturates Screen NEG Urine Amphetamines Screen NEG Urine Benzodiazepines Screen POS Urine Cocaine Screen POS Urine Cannabinoids Screen POS MDM Medical Decision Making Medical Screen Exam Complete: Yes Emergency Medical Condition: Yes Medical Record Reviewed: Yes Interpretation(s) Laboratory Tests Test 09/11/17 09:20 09/11/17 09:50 09/11/17 09:52 White Blood Count 7.4 TH/MM3 Red Blood Count 4.17 MIL/MM3 Hemoglobin 12.1 GM/DL Hematocrit 36.4 % Mean Corpuscular Volume 87.5 FL Mean Corpuscular Hemoglobin 29.1 PG Mean Corpuscular Hemoglobin Concent 33.2 % Red Cell Distribution Width 13.3 % Platelet Count 240 TH/MM3 Mean Platelet Volume 8.9 FL Neutrophils (%) (Auto) 52.7 % Lymphocytes (%) (Auto) 31.1 % Monocytes (%) (Auto) 13.1 % Eosinophils (%) (Auto) 2.5 % Basophils (%) (Auto) 0.6 % Neutrophils # (Auto) 3.9 TH/MM3 Lymphocytes # (Auto) 2.3 TH/MM3 Monocytes # (Auto) 1.0 TH/MM3 Eosinophils # (Auto) 0.2 TH/MM3 Basophils # (Auto) 0.0 TH/MM3 CBC Comment DIFF FINAL Differential Comment Blood Urea Nitrogen 21 MG/DL Creatinine 1.25 MG/DL Random Glucose 92 MG/DL Total Protein 7.0 GM/DL Albumin 3.1 GM/DL Calcium Level 8.9 MG/DL Alkaline Phosphatase 76 U/L Aspartate Amino Transf (AST/SGOT) 27 U/L Alanine Aminotransferase (ALT/SGPT) 15 U/L Total Bilirubin 0.2 MG/DL Sodium Level 137 MEQ/L Potassium Level 4.4 MEQ/L Chloride Level 110 MEQ/L Carbon Dioxide Level 15.8 MEQ/L Anion Gap 11 MEQ/L Estimat Glomerular Filtration Rate 56 ML/MIN Total Creatine Kinase 300 U/L Creatine Kinase MB 1.9 NG/ML Creatine Kinase MB % 0.6 % Ethyl Alcohol Level LESS THAN 3 MG/DL Urine Color YELLOW Urine Turbidity CLEAR Urine pH 5.5 Urine Specific [place] 1.032 Urine Protein 100 mg/dL Urine Glucose (UA) NEG mg/dL Urine Ketones 10 mg/dL Urine Occult Blood NEG Urine Nitrite NEG Urine Bilirubin NEG Urine Urobilinogen 2.0 MG/DL Urine Leukocyte Esterase NEG Urine RBC LESS THAN 1 /hpf Urine WBC 2 /hpf Urine Squamous Epithelial Cells 3 /hpf Urine Bacteria OCC /hpf Urine Hyaline Casts 7 /lpf Urine Mucus MOD /lpf Microscopic Urinalysis Comment CATH-CULTURE IND Urine Opiates Screen NEG Urine Barbiturates Screen NEG Urine Amphetamines Screen NEG Urine Benzodiazepines Screen POS Urine Cocaine Screen POS Urine Cannabinoids Screen POS Differential Diagnosis Differential diagnosis includes polysubstance abuse, substance ingestion, closed head injury, seizure, hyponatremia, schizophrenia, schizoaffective disorder. Narrative Course IV was established, labs are drawn and sent, and the patient was placed on cardiac telemetry monitoring and continuous pulse oximetry monitoring. The patient was placed in restraints and was administered Ativan 2 mg intravenously. Labs were noted. The patient's tox is positive for benzodiazepines, cannabinoids, and cocaine. The patient was allowed to sleep off her drug intoxication and substance ingestion in the emergency department. Patient was monitored. Symptoms did improve with Ativan intravenously. Diagnosis Primary Impression: Ingestion of substance Qualified Codes: T65.94XA - Toxic effect of unspecified substance, undetermined, initial encounter Additional Impression: Cocaine abuse Patient Instructions: General Instructions Additional Instructions: Stop using illicit drugs. Follow-up with her primary physician. Return if symptoms worsen or progress. Disposition: 01 DISCHARGE HOME Condition: Stable Isidro Kumar MD Sep 11, 2017 09:03
[2017-09-11 09:31] LABS: AUTOMATED NEUTROPHIL # 3.9 TH/MM3 (1.8-7.7); BASOPHIL % 0.6 % (0.0-2.0); EOSINOPHIL # 0.2 TH/MM3 (0-0.4); EOSINOPHIL % 2.5 % (0.0-4.0); HEMATOCRIT 36.4 % (35.0-46.0); HEMOGLOBIN 12.1 GM/DL (11.6-15.3); LYMPH % 31.1 % (9.0-44.0); LYMPHOCYTE # 2.3 TH/MM3 (1.0-4.8); MEAN CELL VOLUME 87.5 FL (80.0-100.0); MEAN CORPUSCULAR HEMOGLOBIN 29.1 PG (27.0-34.0); MEAN CORPUSCULAR HGB CONC 33.2 % (32.0-36.0); MEAN PLATELET VOLUME 8.9 FL (7.0-11.0); MONO % 13.1 % (0.0-8.0); NEUT % 52.7 % (16.0-70.0); PLATELET COUNT 240 TH/MM3 (150-450); RED BLOOD COUNT 4.17 MIL/MM3 (4.00-5.30); RED CELL DISTRIBUTION WIDTH 13.3 % (11.6-17.2); WHITE BLOOD COUNT 7.4 TH/MM3 (4.0-11.0)
[2017-09-11 09:44] LABS: ALBUMIN 3.1 GM/DL (3.4-5.0); BICARBONATE 15.8 MEQ/L (21.0-32.0); BLOOD UREA NITROGEN 21 MG/DL (7-18); CALCIUM 8.9 MG/DL (8.5-10.1); CHLORIDE 110 MEQ/L (98-107); CREATININE 1.25 MG/DL (0.50-1.00); GLOMERULAR FILTRATION RATE 56 ML/MIN (>89); GLUCOSE,RANDOM 92 MG/DL (74-106); SODIUM (NA) 137 MEQ/L (136-145)
[2017-09-11 09:46] LABS: AST (GOT) 27 U/L (15-37)
[2017-09-11 09:49] LABS: ALKALINE PHOSPHATASE 76 U/L (45-117); ALT (GPT) 15 U/L (10-53); TOTAL BILIRUBIN ADULT 0.2 MG/DL (0.2-1.0)
[2017-09-11] MEDS: SODIUM CHLORIDE 0.9% FLUSH 10 ML FLUSH IVF PRN ×2 (10:02→13:11)
[2017-09-11 10:11] LABS: BACTERIA, URINE OCC /hpf; BILIRUBIN, URINE NEG (NEG); BLOOD, URINE NEG (NEG); GLUCOSE,URINE NEG (NEG); HYALINE CAST, URINE 7 /lpf (RARE); KETONE, URINE 10 mg/dL (NEG); MUCUS URINE MOD /lpf (OCC); NITRITE,URINE NEG (NEG); PH, URINE 5.5 (5.0-8.5); SQUAMOUS EPITHELIAL CELL URINE 3 /hpf (0-5); URINE COLOR YELLOW (YELLW/STRAW); URINE LEUKOCYTE ESTERASE NEG (NEG)
[2017-09-11] MEDS: SODIUM CHLOR 0.9% 1000 ML INJ 1,000 ML IV SCH ×2 (13:11→23:00)
[2017-09-11] MEDS ORDERED: HALOPERIDOL LACTATE 5 MG/ML AMP IM ONE (17:00)
--- NOTE | 2017-09-12 06:16 | PD ---
Data Data Last Documented VS Vital Signs Date Time Temp Pulse Resp B/P (MAP) Pulse Ox O2 Delivery O2 Flow Rate FiO2 09/11/17 17:15 95 16 128/69 (88) 100 Room Air 09/11/17 09:00 97.9 Orders Orders Complete Blood Count With Diff (09/11/17 08:57) Comprehensive Metabolic Panel (09/11/17 08:57) Urinalysis - C+S If Indicated (09/11/17 08:57) Iv Access Insert/Monitor (09/11/17 08:57) Ecg Monitoring (09/11/17 08:57) Oximetry (09/11/17 08:57) Lorazepam Inj (Ativan Inj) (09/11/17 09:00) Sodium Chloride 0.9% Flush (Ns Flush) (09/11/17 09:00) Sodium Chlor 0.9% 1000 Ml Inj (Ns 1000 M (09/11/17 08:57) Drug Screen, Random Urine (09/11/17 08:57) Alcohol (Ethanol) (09/11/17 08:57) Creatine Kinase (Cpk) (09/11/17 08:57) Restraints Non-Violent JENNA.Q3H (09/11/17 08:59) CKMB (09/11/17 09:20) CKMB% (09/11/17 09:20) Urine Culture (09/11/17 09:50) Sodium Chlor 0.9% 1000 Ml Inj (Ns 1000 M (09/11/17 10:45) Sodium Chlor 0.9% 1000 Ml Inj (Ns 1000 M (09/11/17 11:00) Sodium Chlor 0.9% 1000 Ml Inj (Ns 1000 M (09/11/17 13:00) Lorazepam Inj (Ativan Inj) (09/11/17 13:15) Lorazepam Inj (Ativan Inj) (09/11/17 16:00) Haloperidol Inj (Haldol Inj) (09/11/17 17:00) Labs Laboratory Tests Test 09/11/17 09:20 09/11/17 09:50 09/11/17 09:52 White Blood Count 7.4 TH/MM3 Red Blood Count 4.17 MIL/MM3 Hemoglobin 12.1 GM/DL Hematocrit 36.4 % Mean Corpuscular Volume 87.5 FL Mean Corpuscular Hemoglobin 29.1 PG Mean Corpuscular Hemoglobin Concent 33.2 % Red Cell Distribution Width 13.3 % Platelet Count 240 TH/MM3 Mean Platelet Volume 8.9 FL Neutrophils (%) (Auto) 52.7 % Lymphocytes (%) (Auto) 31.1 % Monocytes (%) (Auto) 13.1 % Eosinophils (%) (Auto) 2.5 % Basophils (%) (Auto) 0.6 % Neutrophils # (Auto) 3.9 TH/MM3 Lymphocytes # (Auto) 2.3 TH/MM3 Monocytes # (Auto) 1.0 TH/MM3 Eosinophils # (Auto) 0.2 TH/MM3 Basophils # (Auto) 0.0 TH/MM3 CBC Comment DIFF FINAL Differential Comment Blood Urea Nitrogen 21 MG/DL Creatinine 1.25 MG/DL Random Glucose 92 MG/DL Total Protein 7.0 GM/DL Albumin 3.1 GM/DL Calcium Level 8.9 MG/DL Alkaline Phosphatase 76 U/L Aspartate Amino Transf (AST/SGOT) 27 U/L Alanine Aminotransferase (ALT/SGPT) 15 U/L Total Bilirubin 0.2 MG/DL Sodium Level 137 MEQ/L Potassium Level 4.4 MEQ/L Chloride Level 110 MEQ/L Carbon Dioxide Level 15.8 MEQ/L Anion Gap 11 MEQ/L Estimat Glomerular Filtration Rate 56 ML/MIN Total Creatine Kinase 300 U/L Creatine Kinase MB 1.9 NG/ML Creatine Kinase MB % 0.6 % Ethyl Alcohol Level LESS THAN 3 MG/DL Urine Color YELLOW Urine Turbidity CLEAR Urine pH 5.5 Urine Specific [place] 1.032 Urine Protein 100 mg/dL Urine Glucose (UA) NEG mg/dL Urine Ketones 10 mg/dL Urine Occult Blood NEG Urine Nitrite NEG Urine Bilirubin NEG Urine Urobilinogen 2.0 MG/DL Urine Leukocyte Esterase NEG Urine RBC LESS THAN 1 /hpf Urine WBC 2 /hpf Urine Squamous Epithelial Cells 3 /hpf Urine Bacteria OCC /hpf Urine Hyaline Casts 7 /lpf Urine Mucus MOD /lpf Microscopic Urinalysis Comment CATH-CULTURE IND Urine Opiates Screen NEG Urine Barbiturates Screen NEG Urine Amphetamines Screen NEG Urine Benzodiazepines Screen POS Urine Cocaine Screen POS Urine Cannabinoids Screen POS MDM Supervised Visit with LAURIE: No Narrative Course The patient was initially evaluated by the previous provider and was allowed to sleep off her intoxication in the emergency department. See his note for further details. Briefly this is a 46-year-old female who presented with intoxication secondary to Flakka use. The patient became very agitated and required physical and chemical restraints. She was allowed to sleep in the emergency department overnight with frequent assessments by myself and nursing staff. At 6:15 AM the patient is clinically sober and will be discharged home. Diagnosis Primary Impression: Ingestion of substance Qualified Codes: T65.94XA - Toxic effect of unspecified substance, undetermined, initial encounter Additional Impression: Cocaine abuse Patient Instructions: General Instructions Additional Instruction: Stop using illicit drugs. Follow-up with her primary physician. Return if symptoms worsen or progress. Disposition: 01 DISCHARGE HOME Condition: Stable Victoriano Rivera MD Sep 12, 2017 06:16
[2017-09-12 07:00] VITALS: BP 133/74; PULSE 101; RESP 16; TEMP 98.3; O2SAT 97
[2017-09-12] MEDS: SODIUM CHLOR 0.9% 1000 ML INJ 1,000 ML IV SCH (08:53)
[2017-09-12 11:17] VITALS: BP 127/72; PULSE 96; RESP 16; O2SAT 97
== END 2017-09-12 13:00 | disposition home or self-care (01) ==
LOC: NEPC 08:48
DX: T50.991A Poisoning by other drugs, medicaments and biological substances, accidental (unintentional), initial encounter (principal); F14.10 Cocaine abuse, uncomplicated; J45.909 Unspecified asthma, uncomplicated; F41.9 Anxiety disorder, unspecified; F32.9 Major depressive disorder, single episode, unspecified; I10 Essential (primary) hypertension; F20.9 Schizophrenia, unspecified; F17.200 Nicotine dependence, unspecified, uncomplicated; Z79.51 Long term (current) use of inhaled steroids
CPT/HCPCS: 80053; 80307; 81001; 82550; 82552; 85025; 87086; 96361; 96372; 96374; 96376; 99284; J1630; J2060; J7030

== ENCOUNTER 2017-11-05 22:31 | Emergency (ER) | payer SELFPAY ==
[~2017-11-05] VITALS: Ht 180.3 cm; Wt 65.0 kg
[2017-11-05 22:48] VITALS: BP 130/89; PULSE 90; RESP 18; TEMP 98.7; O2SAT 98
[2017-11-05] MEDS ORDERED: cefTRIAXone 250 MG VIAL IM ONE (23:30)
[2017-11-05] MEDS ORDERED: AZITHROMYCIN 250 MG TAB PO ONE (23:30)
[2017-11-05] MEDS ORDERED: RESP: ALBUTEROL 2.5 MG/IPRATROPIUM 0.5 MG NEB (SCH) NEB ONE (23:30)
[2017-11-05] MEDS ORDERED: LIDOCAINE HCL 1% 50 ML VIAL IM ONE (23:30)
[2017-11-05] MEDS ORDERED: LIDOCAINE HCL 1% 20 ML VIAL OTHER ONE (23:45)
--- NOTE | 2017-11-05 23:48 | RADRPT ---
EXAM DATE/TIME: 11/05/2017 23:37 [facility] COMPARISON: CHEST SINGLE AP, August 30, 2017, 12:03. INDICATIONS : Cough. MEDICAL HISTORY : None. SURGICAL HISTORY : None. ENCOUNTER: Initial ACUITY: 1 day PAIN SCORE: 0/10 LOCATION: Bilateral chest FINDINGS: A single view of the chest demonstrates the lungs to be symmetrically aerated without evidence of mas s, infiltrate or effusion. The cardiomediastinal contours are unremarkable. Osseous structures are intact. CONCLUSION: 1. No acute cardiopulmonary disease. Amol So MD on November 05, 2017 at 23:47 Board Certified Radiologist. This report was verified electronically.
--- NOTE | 2017-11-06 00:18 | PD ---
HPI Chief Complaint: [employer] Problem/Complaint Time Seen by Provider: 23:19 Travel History International Travel<30 days: No Contact w/Intl Traveler<30days: No Traveled to known affect area: No History of Present Illness HPI 47-year-old female presents to the emergency department for complaint of cold symptoms for several days to a week without fever or chills. Patient states she did not have the flu vaccine. Patient also complains of vaginal discharge. Patient states she does not have any money and last time she had a vaginal discharge to give her medicine in the emergency department to cover her symptoms. Patient denies . Patient denies chest pain. Patient denies abdominal pain. Patient said no vomiting or diarrhea. Patient does report history of asthma and anxiety depression. PFSH Past Medical History Narrative Medical Asthma hypertension anxiety depression and tubal ligation alcohol use tobacco use substance use; nursing notes reviewed Asthma: Yes (childhood asthma) Blood Disorders: No Anxiety: Yes Depression: Yes Heart Rhythm Problems: No Cancer: No Cardiovascular Problems: No Diminished Hearing: No Endocrine: No Genitourinary: No Hypertension: Yes Immune Disorder: No Implanted Vascular Access Dvce: No Musculoskeletal: No Neurologic: No Psychiatric: Yes (schizoprenia) Reproductive: No Respiratory: Yes Schizophrenia: Yes Tetanus Vaccination: < 5 Years Influenza Vaccination: No ?: Not LMP: 09/10/2017 : 6 Para: 4 Miscarriage: 0 : 2 Tubal Ligation: Yes Past Surgical History Section: Yes (X 4) Social History Alcohol Use: Yes (OCCASIONAL) Tobacco Use: Yes ( 1/2 PPD) Substance Use: Yes (Admits to using cocaine; flacca today 09/11/17) Allergies-Medications (Allergen,Severity, Reaction): Coded Allergies: sulfamethoxazole (Unverified Allergy, Severe, 11/05/17) Per pt. trimethoprim (Unverified Allergy, Severe, 11/05/17) Per pt. Sulfa (Sulfonamide Antibiotics) (Unverified Allergy, Intermediate, Hives, 11/05/17) Per pt. Reported Meds & Prescriptions Reported Meds & Active Scripts Active Ventolin Hfa 18 GM Inh (Albuterol Sulfate) 90 Mcg/Act Aer 2 Puff INH Q4-6H PRN Flagyl (Metronidazole) 500 Mg Tab 500 Mg PO QID 7 Days Ventolin Hfa 18 GM Inh (Albuterol Sulfate) 90 Mcg/Act Aer 2 Puff INH Q4-6H PRN Dok (Docusate Sodium) 100 Mg Cap 100 Mg PO Q12H Reported Zoloft (Sertraline HCl) 100 Mg Tab 100 Mg PO DAILY Risperdal (Risperidone) 3 Mg Tab 3 Mg PO HS Seroquel (Quetiapine Fumarate) 400 Mg Tab 400 Mg PO DAILY Review of Systems Except as stated in HPI: all other systems reviewed are Neg Physical Exam Narrative GENERAL: Well-developed well-nourished female no acute respiratory distress SKIN: Warm and dry. HEAD: Normocephalic. EYES: No scleral icterus. No injection or drainage. NECK: Supple, trachea midline. No JVD or lymphadenopathy. CARDIOVASCULAR: Regular rate and rhythm without murmurs, gallops, or rubs. RESPIRATORY: Breath sounds equal bilaterally. No accessory muscle use. GASTROINTESTINAL: Abdomen soft, non-tender, nondistended. Pelvic exam: Scant white discharge no blood no tissue no clots cervical loss closed no cervical motion tenderness on bimanual exam MUSCULOSKELETAL: No cyanosis, or edema. BACK: Nontender without obvious deformity. No CVA tenderness. Data Data Last Documented VS Vital Signs Date Time Temp Pulse Resp B/P (MAP) Pulse Ox O2 Delivery O2 Flow Rate FiO2 11/05/17 22:48 98.7 90 18 130/89 (103) 98 Orders Orders Gc And Chlamydia Pcr (11/05/17 23:19) Wet Prep Profile (11/05/17 23:19) Ceftriaxone Inj (Rocephin Inj) (11/05/17 23:30) Ed Urine Pregnancytest Poc (11/05/17 23:19) Chest, Single Ap (11/05/17 ) Azithromycin (Zithromax) (11/05/17 23:30) Influenzae A/B Antigen (11/05/17 23:19) Lidocaine 1% Inj (50 Ml) (Xylocaine 1% I (11/05/17 23:30) Albuterol-Ipratropium Neb (Duoneb Neb) (11/05/17 23:30) Lidocaine 1% Inj (Xylocaine 1% Inj) (11/05/17 23:45) Metronidazole (Flagyl) (11/06/17 00:30) Ed Discharge Order (11/06/17 00:44) Labs Laboratory Tests Test 11/05/17 23:30 Clue Cells (Wet Prep) PRESENT Vaginal Trichomonas (Wet Prep) NONE SEEN Vaginal Yeast (Wet Prep) NONE SEEN Chlamydia trachomatis DNA (PCR) NOT DETECTED Neisseria gonorrhoeae DNA (PCR) NOT DETECTED MDM Medical Decision Making Medical Screen Exam Complete: Yes Emergency Medical Condition: Yes Medical Record Reviewed: Yes Interpretation(s) Wet prep positive for clue cells Influenza A/B antigen: Negative Last Impressions Chest X-Ray 11/05/17 0000 Signed Impressions: Service Date/Time: Sunday, November 05, 2017 23:37 - CONCLUSION: 1. No acute cardiopulmonary disease. Amol So MD Vital Signs Date Time Temp Pulse Resp B/P (MAP) Pulse Ox O2 Delivery O2 Flow Rate FiO2 11/05/17 22:48 98.7 90 18 130/89 (103) 98 Differential Diagnosis Viral syndrome, UTI, STI, bronchitis, pneumonia, URI Narrative Course Patient presents with cough and congestion wheezing updraft administered history of tobacco use symptoms consistent with bronchitis will obtain chest x- ray to rule out pneumonia Patient has scant vaginal discharge and no cervical motion tenderness patient treated presumptively for STI Wet prep positive we discharged with prescription for Flagyl and presumptively administered Rocephin and azithromycin for STI Patient stable for outpatient management Refill of albuterol inhaler Diagnosis Primary Impression: URI (upper respiratory infection) Qualified Codes: J06.9 - Acute upper respiratory infection, unspecified Additional Impression: Vaginal discharge Referrals: Primary Care Physician call for appointment Patient Instructions: General Instructions Additional Instructions: Increase fluid hydration Take acetaminophen/Tylenol as needed for fever 100.4F or greater Take ibuprofen/Advil/Motrin every 6-8 hours as needed for fever 100.4F or greater Follow-up with your primary care provider return to the emergency department concerns or change in condition Med/Other Pt SpecificInfo: Prescription(s) given Scripts Albuterol 18 GM Inh (Ventolin Hfa 18 GM Inh) 90 Mcg/Act Aer 2 PUFF INH Q4-6H Y for SHORTNESS OF BREATH, #1 INHALER 0 Refills Prov: Anne Cook MD 11/06/17 Metronidazole (Flagyl) 500 Mg Tab 500 MG PO QID for Infection for 7 Days, TAB 0 Refills Prov: Anne Cook MD 11/06/17 Disposition: 01 DISCHARGE HOME Condition: Stable Anne Cook MD Nov 06, 2017 00:18
[2017-11-06] MEDS ORDERED: METR-1 PO (00:22)
[2017-11-06] MEDS ORDERED: VENTAER INH (00:22)
[2017-11-06] MEDS ORDERED: metroNIDAZOLE 500 MG TAB PO ONE (00:30)
== END 2017-11-06 01:22 | disposition home or self-care (01) ==
LOC: NEPC 22:31
DX: J06.9 Acute upper respiratory infection, unspecified (principal); N89.8 Other specified noninflammatory disorders of vagina; J45.909 Unspecified asthma, uncomplicated; I10 Essential (primary) hypertension; Z72.0 Tobacco use; F14.90 Cocaine use, unspecified, uncomplicated
CPT/HCPCS: 71045; 87210; 87491; 87591; 87804; 94664; 96372; 99284; J0696

== ENCOUNTER 2017-12-10 20:16 | Emergency (ER) | payer SELFPAY ==
[~2017-12-10] VITALS: Ht 154.9 cm; Wt 66.0 kg
[~2017-12-10 20:16] MED LIST changes: +METR-1 PO
[2017-12-10 21:44] VITALS: BP 145/87; PULSE 82; RESP 16; TEMP 98.6; O2SAT 99
[2017-12-10 22:38] LABS: AMORPHOUS SEDIMENT, URINE FEW; BACTERIA, URINE RARE /hpf; BILIRUBIN, URINE NEG (NEG); BLOOD, URINE NEG (NEG); GLUCOSE,URINE NEG (NEG); KETONE, URINE NEG (NEG); NITRITE,URINE NEG (NEG); URINE COLOR LIGHT-YELLOW (YELLW/STRAW); URINE LEUKOCYTE ESTERASE NEG (NEG)
[2017-12-11] MEDS ORDERED: METR-1 PO (01:37)
--- NOTE | 2017-12-11 01:37 | PD ---
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 Patient states she does not know why it keeps coming back she douches regularly, she states when it happens to her she can afford her Flagyl so they gave her 2000 mg of Flagyl and sent her home. She denies any abdominal pain nausea or vomiting or diarrhea. She states discharge is white and there is a fishy odor "down there". States symptoms for the past few days, gradually worsening, context as above, associated signs and symptoms as above. She adamantly denies any STD exposure and would not like to be treated empirically for STDs. PFSH Past Medical History Asthma: Yes (childhood asthma) Blood Disorders: No Anxiety: Yes Depression: Yes Heart Rhythm Problems: No Cancer: No Cardiovascular Problems: No Diminished Hearing: No Endocrine: No Genitourinary: No Hypertension: Yes Immune Disorder: No Implanted Vascular Access Dvce: No Musculoskeletal: No Neurologic: No Psychiatric: Yes (schizoprenia) Reproductive: No Respiratory: Yes (asthma) Immunizations Current: No (WAS IN HALFWAY) Schizophrenia: Yes Tetanus Vaccination: Unknown Influenza Vaccination: Yes ?: Not LMP: 11/26/17 : 6 Para: 4 Miscarriage: 0 : 2 Tubal Ligation: Yes Past Surgical History Section: Yes (X 4) Social History Alcohol Use: Yes (OCCASIONAL) Tobacco Use: Yes ( 1/2 PPD) Substance Use: Yes (Admits to using cocaine; flacca today 09/11/17) Allergies-Medications (Allergen,Severity, Reaction): Coded Allergies: sulfamethoxazole (Unverified Allergy, Severe, 12/10/17) Per pt. trimethoprim (Unverified Allergy, Severe, 12/10/17) Per pt. Sulfa (Sulfonamide Antibiotics) (Unverified Allergy, Intermediate, Hives, 12/10/17) Per pt. Reported Meds & Prescriptions Reported Meds & Active Scripts Active Flagyl (Metronidazole) 500 Mg Tab 500 Mg PO BID 7 Days Ventolin Hfa 18 GM Inh (Albuterol Sulfate) 90 Mcg/Act Aer 2 Puff INH Q4-6H PRN Flagyl (Metronidazole) 500 Mg Tab 500 Mg PO QID 7 Days Ventolin Hfa 18 GM Inh (Albuterol Sulfate) 90 Mcg/Act Aer 2 Puff INH Q4-6H PRN Dok (Docusate Sodium) 100 Mg Cap 100 Mg PO Q12H Reported Zoloft (Sertraline HCl) 100 Mg Tab 100 Mg PO DAILY Risperdal (Risperidone) 3 Mg Tab 3 Mg PO HS Seroquel (Quetiapine Fumarate) 400 Mg Tab 400 Mg PO DAILY Review of Systems Except as stated in HPI: all other systems reviewed are Neg Physical Exam Narrative GENERAL: Well-nourished, well-developed patient. SKIN: Focused skin assessment warm/dry. HEAD: Normocephalic. EYES: No scleral icterus. No injection or drainage. NECK: Supple, trachea midline. No JVD or lymphadenopathy. CARDIOVASCULAR: Regular rate and rhythm without murmurs, gallops, or rubs. RESPIRATORY: Breath sounds equal bilaterally. No accessory muscle use. GASTROINTESTINAL: Abdomen soft, non-tender, nondistended. No rebound no percussive tenderness. GENITOURINARY: Exam performed with female nurse operating room surgical technician present all times, scant discharge in the vaginal vault, there is a cystic structure in the 3 o' clock position of the cervix. No cervical motion tenderness no bimanual tenderness no cervical lesion. MUSCULOSKELETAL: No cyanosis, or edema. BACK: Nontender without obvious deformity. No CVA tenderness. Data Data Last Documented VS Vital Signs Date Time Temp Pulse Resp B/P (MAP) Pulse Ox O2 Delivery O2 Flow Rate FiO2 12/10/17 21:44 98.6 82 16 145/87 (106) 99 Orders Orders Complete Blood Count With Diff (12/10/17 21:47) Iv Access Insert/Monitor (12/10/17 21:47) Oxygen Administration (12/10/17 21:47) Oximetry (12/10/17 21:47) Ed Urine Pregnancytest Poc (12/10/17 21:47) Urinalysis - C+S If Indicated (12/10/17 22:12) Wet Prep Profile (12/10/17 23:51) Gc And Chlamydia Pcr (12/10/17 23:51) Ed Discharge Order (12/11/17 01:35) Labs Laboratory Tests Test 12/10/17 22:16 12/11/17 01:45 Urine Color LIGHT-YELLOW Urine Turbidity CLOUDY Urine pH 7.0 Urine Specific [place] 1.022 Urine Protein NEG mg/dL Urine Glucose (UA) NEG mg/dL Urine Ketones NEG mg/dL Urine Occult Blood NEG Urine Nitrite NEG Urine Bilirubin NEG Urine Urobilinogen LESS THAN 2.0 MG/DL Urine Leukocyte Esterase NEG Urine RBC 1 /hpf Urine Amorphous Sediment FEW Urine Bacteria RARE /hpf Microscopic Urinalysis Comment CULT NOT INDICATED Clue Cells (Wet Prep) NONE SEEN Vaginal Trichomonas (Wet Prep) NONE SEEN Vaginal Yeast (Wet Prep) NONE SEEN Chlamydia trachomatis DNA (PCR) NOT DETECTED Neisseria gonorrhoeae DNA (PCR) NOT DETECTED MDM Medical Decision Making Medical Screen Exam Complete: Yes Emergency Medical Condition: Yes Differential Diagnosis BV, CV, STD, . Narrative Course test negative, wet prep negative, patient counseled very closely on stopping douching, also discussed wiping front to back and all times, also discussed that it appears she has had suboptimal therapy for BV in the past, I recommended strongly that she be placed on Flagyl as an outpatient, she somewhat argued with this fact and requested over and over that she be given a one-time dose. I discussed with her that this is not adequate and she needs to take Flagyl over the next week and she finally verbalized understanding and agreement. A prescription was written and she is stable for discharge. Discussed need for follow-up with a primary care physician and [facility] or the health department and discussed that she needs to have a Pap smear. Diagnosis Primary Impression: Bacterial vaginosis Med/Other Pt SpecificInfo: Prescription(s) given Scripts Metronidazole (Flagyl) 500 Mg Tab 500 MG PO BID for Infection for 7 Days, #14 TAB 0 Refills Prov: J Carlos Mccord MD 12/11/17 Disposition: DISCHARGE HOME Condition: Stable J Carlos Mccord MD Dec 11, 2017 01:37
== END 2017-12-11 06:35 | disposition home or self-care (01) ==
LOC: NEPE 20:16
DX: N76.0 Acute vaginitis (principal); B96.89 Other specified bacterial agents as the cause of diseases classified elsewhere; F17.200 Nicotine dependence, unspecified, uncomplicated; J45.909 Unspecified asthma, uncomplicated; F20.9 Schizophrenia, unspecified
CPT/HCPCS: 81001; 84703; 87210; 87491; 87591; 99283